=== PATIENT | female | born 1990 | race Caucasian/White ===

== ENCOUNTER 2020-01-31 14:14 | Emergency (ER) | payer BC, SELFPAY ==
[2020-01-31 14:31] VITALS: BP 117/75; PULSE 81; RESP 16; TEMP 36.6; O2SAT 99; BMI 33.6
[2020-01-31] MEDS: 0.9 % Sodium Chloride 1,000 ML 999 ML IVCONT (15:05)
[2020-01-31 15:15] LABS: Basophils Percent Auto 0.3 % (0-2); Eosinophils Absolute Auto 0.1 X10*3/uL (0.0-0.4); Eosinophils Percent Auto 1.9 % (0-4); Hematocrit 36.3 % (37-47); Hemoglobin 11.4 g/dl (12.0-16.0); Imm Gran Abs Auto 0.08 X10*3/uL (0.00-0.03); Imm Gran Pct Auto 1.3 % (0.0-0.4); Lymphocytes Absolute Auto 0.8 X10*3/uL (1.2-4.9); Lymphocytes Percent Auto 12.7 % (20-40); MANUAL DIFF FLAG NO; Mean Corpuscular HGB Conc 31.4 g/dl (31.0-35.0); Mean Corpuscular Hemoglobin 24.7 pg (27.0-33.0); Mean Corpuscular Volume 78.7 fL (80-98); Mean Platelet Volume 10.7 fL (9.4-12.3); Monocytes Absolute Auto 0.6 X10*3/uL (0.1-1.2); Monocytes Percent Auto 9.6 % (2-11); Neutrophils Absolute Auto 4.6 X10*3/uL (2.0-8.3); Neutrophils Percent Auto 74.2 % (45-73); Platelet Count 277 X10*3/uL (160-400); Red Blood Count 4.61 X10*6/uL (4.20-5.50); Red Cell Distribution Width 14.3 % (11.0-16.0); White Blood Count 6.2 X10*3/uL (4.8-10.8)
[2020-01-31 15:21] LABS: INTERNATIONAL NORM RATIO 1.1 (0.9-1.1)
[2020-01-31 15:23] LABS: Partial Thromboplastin Time 31.5 SEC (24.1-38.0)
[2020-01-31 15:26] LABS: Glucose Urine UA NEG (NEG); Leukocyte Esterase Urine 2+ (NEG); Nitrite Urine NEG (NEG); Urine Blood 3+ (NEG); Urine Ketones NEG (NEG); Urine Protein NEG (NEG-TRACE)
[2020-01-31 15:27] LABS: Appearance Urine HAZY; Color Urine YELLOW
[2020-01-31 15:28] LABS: UPreg QC Valid YES; Urine Pregnancy NEGATIVE (NEGATIVE)
[2020-01-31 15:35] LABS: Bacteria Urine 1+ /LPF; RBC Urine 50-75 /HPF (0); Squamous Epithelial Cell Urine 3+ /LPF; WBC Urine 30-49 /HPF (0-4)
[2020-01-31 15:40] VITALS: BP 108/58; PULSE 74; RESP 17; TEMP 36.6; O2SAT 100
[2020-01-31 15:53] LABS: Alanine Aminotransferase 27 U/L (0-31); Albumin Level 3.8 g/dL (3.5-5.0); Alkaline Phosphatase 67 U/L (39-117); Anion Gap 12 (12-20); Aspartate Amino Transferase 30 U/L (5-31); Bilirubin Direct 0.2 mg/dL (0.0-0.5); Bilirubin Total 0.5 mg/dL (0.0-1.0); Blood Urea Nitrogen 13 mg/dL (9-16); Calcium 8.3 mg/dL (8.4-10.2); Carbon Dioxide 23 mmol/L (22-29); Chloride 103 mmol/L (96-108); Creatinine Clr Calc Pharmacy 112.7; Estimated Glomerular Filt Rate > 60; Glucose Random 86 mg/dL (60-115); Lipase 29 U/L (8-78); Potassium 4.3 mmol/l (3.3-5.1); Sodium 134 mmol/L (135-145)
[2020-01-31 15:55] LABS: HCG Quantitative 27 mIU/mL
--- NOTE | 2020-01-31 16:24 | ED_ITS ---
HPI - Abdominal Pain General Chief Complaint: Abdominal Pain Stated Complaint: Abd pain Time Seen by Provider: 01/31/20 14:26 Source: patient Mode of arrival: ambulatory Limitations: no limitations History of Present Illness HPI narrative: patient presents to the ED for slight abdominal cramping and dysuria for the past 2 weeks. Patient also states yesterday she took a test and was positive. Patient denies any flank pain, fever, chills, nausea, vomiting, vaginal bleeding. Related Data Previous Rx's Medication Instructions Recorded nitrofurantoin monohyd/m-cryst 100 mg PO Q12H #14 cap 01/31/20 [Macrobid] Allergies Allergy/AdvReac Type Severity Reaction Status Date / Time lidocaine Allergy Swelling Verified 01/31/20 14:36 Review of Systems Review of Systems Yes all other systems are reviewed and are negative Eyes: Reports as per HPI and Reports no additional eye complaints Reports system reviewed and no additional complaints, except as documented, Reports as per HPI and Denies dysphagia Cardiovascular: Reports as per HPI and Reports no additional cardiovascular complaints Respiratory: Reports as per HPI and Reports no additional respiratory complaints Gastrointestinal: Denies abdominal pain, Denies belching, Denies melena, Denies bloating, Denies hematochezia, Denies tenesmus, Denies change in stool character, Denies coffee ground emesis, Denies constipation, Denies GI cramping, Denies dysphagia, Denies excessive flatus, Denies early satiety, Denies dyspepsia, Denies heartburn, Denies fecal incontinence, Denies diarrhea and Denies loose stools Genitourinary: Reports no additional female genitourinary complaints, Reports as per HPI, Reports dysuria, Reports pelvic pain, Denies prolapse symptoms, Reports urinary incontinence ( Increased), Denies urinary hesitancy, Denies urinary urgency, Denies vaginal discharge and Denies vaginal dryness Musculoskeletal: Reports no additional musculoskeletal complaints Reports system reviewed and no additional complaints, except as documented and Reports as per HPI Psychiatric: Reports no additional psychiatric complaints and Reports as per HPI Physical Exam Vital Signs: Vital Signs: Vital Signs Temp Pulse Resp BP Pulse Ox 01/31/20 15:40 98 F 74 17 108/58 L 100 01/31/20 14:31 97.8 F 81 16 117/75 99 Body Mass Index 33.6 Const: General: cooperative, healthy appearing, comfortable, no acute distress, well developed, alert and awake Orientation/consciousness: oriented to person, oriented to place, oriented to time and patient oriented x3 HENMT: Head: Yes normal to inspection Ears: hearing grossly normal bilaterally General nose exam: Normal external nose present Face and sinus: Yes normal facial exam Mouth: Normal oral and palatal mucosa present Eyes: General: appearance normal, both eyes and all related structures Neck: Neck: Yes normal visual inspection, Yes full ROM, Yes no lymphadenopathy, Yes no meningeal signs, No positive Brudzinski's sign and No positive Kernig's sign Chest: Chest palpation & inspection: normal inspection of the chest, normal palpation of entire chest wall and no localized rib tenderness Resp: Effort & Inspection: normal respiratory effort, able to speak in complete sentences, no grunting, not labored, no nasal flaring, no paradoxical thoraco-abdom movements, no pursed lip breathing, not tachypneic, no tracheal deviation and no tripod positioning Auscultation: clear to auscultation bilaterally, no crackles, no rales, no rhonchi and no wheezes Percussion: percussion normal Cardio: Jugular venous distension: no JVD Heart sounds: S1 normal heart sound present and S2 normal heart sound present GI: Inspection: Yes normal to inspection Palpation (GI): Soft to palpation, not firm, nontender, no guarding and not rigid Percussion: Yes normal to percussion Auscultation: normal bowel sounds : Other: pelvic exam negative for any vaginal bleeding. Cervical os is closed. Negative for cervical motion tenderness. Negative for any yellow /green discharge. General: No CVA tenderness and Yes no CVA tenderness Back/Spine/Pelvis: Back: no CVA tenderness, No CVA tenderness and No back tenderness Skin: General skin exam: no rashes or lesions noted Neuro: General: oriented to person, oriented to place, oriented to time, patient oriented x3, gait normal, no meningeal signs and CN's II-XI intact bilaterally Cranial nerves: Yes CN's II-XII intact bilaterally Course Course Course Narrative: patient will have labs drawn including base CT to see if she is . Patient presents not any distress. Patient given IV fluids. Reevaluation(s) Reevaluation #1: Patient beta hCG is only 27. abdomen is benign and nontender to palpation. Negative for CVA flanks. Ultrasound to rule out ectopic not ne cessary. Ectopic very unlikely at base CT at 27. Patient denies any vaginal bleeding. Time: 17:04 Reevaluation #2: Patient will be treated as UTI. Patient given information to follow-up with Dr. William Aiken for further evaluation. Time: 17:13 Reevaluation #3: patient was offered empiric treatment for STI, but patient states she rather wait for the results to see if she positive and then she will be called to [facility] for treatment. Patient informed results take about 4-5 days and patient still rather wait for the results. Patient does not believe she has STI. Time: 17:34 MDM - Abdominal Pain MDM Narrative Medical decision making narrative: . UTI Lab Data Result diagrams: 01/31/20 15:04 01/31/20 15:04 Labs: Lab Results 01/31/20 01/31/20 01/31/20 Range/Units 15:04 15:04 15:04 WBC 6.2 (4.8-10.8) X10*3/uL RBC 4.61 (4.20-5.50) X10*6/uL Hgb 11.4 L (12.0-16.0) g/dl Hct 36.3 L (37-47) % MCV 78.7 L (80-98) fL MCH 24.7 L (27.0-33.0) pg MCHC 31.4 (31.0-35.0) g/dl RDW 14.3 (11.0-16.0) % Plt Count 277 (160-400) X10*3/uL MPV 10.7 (9.4-12.3) fL Immature Gran % (Auto) 1.3 H (0.0-0.4) % Neut % (Auto) 74.2 H (45-73) % Lymph % (Auto) 12.7 L (20-40) % [place] % (Auto) 9.6 (2-11) % Eos % (Auto) 1.9 (0-4) % Baso % (Auto) 0.3 (0-2) % Lymph # (Auto) 0.8 L (1.2-4.9) X10*3/uL [place] # (Auto) 0.6 (0.1-1.2) X10*3/uL Eos # (Auto) 0.1 (0.0-0.4) X10*3/uL Baso # (Auto) 0.0 (0.0-0.2) X10*3/uL Abs Immat Gran (auto) 0.08 H (0.00-0.03) X10*3/uL Absolute Neuts (auto) 4.6 (2.0-8.3) X10*3/uL Absolute Nucleated RBC 0.000 (0.0-0.012) X10*3/uL Nucleated RBC % (auto) 0.0 (0.0-0.2) /100WBC PT 13.0 (10.8-13.0) SEC INR 1.1 (0.9-1.1) APTT 31.5 (24.1-38.0) SEC Sodium 134 L (135-145) mmol/L Potassium 4.3 (3.3-5.1) mmol/l Chloride 103 (96-108) mmol/L Carbon Dioxide 23 (22-29) mmol/L Anion Gap 12 (12-20) BUN 13 (9-16) mg/dL Creatinine 0.78 (0.5-1.4) mg/dL Estim Creat Clear Calc 112.7 Estimated GFR > 60 Random Glucose 86 (60-115) mg/dL Calcium 8.3 L (8.4-10.2) mg/dL Total Bilirubin 0.5 (0.0-1.0) mg/dL Direct Bilirubin 0.2 (0.0-0.5) mg/dL AST 30 (5-31) U/L ALT 27 (0-31) U/L Alkaline Phosphatase 67 (39-117) U/L Total Protein 9.0 H (6.5-8.0) g/dL Albumin 3.8 (3.5-5.0) g/dL Lipase 29 (8-78) U/L Beta HCG, Quant 27 mIU/mL Urine Color Urine Appearance Urine pH (5.0-8.0) Ur Specific [place] (1.005-1.025) Urine Protein (NEG-TRACE) MG/DL Urine Glucose (UA) (NEG) MG/DL Urine Ketones (NEG) MG/DL Urine Blood (NEG) Urine Nitrite (NEG) Ur Leukocyte Esterase (NEG) Urine RBC (0) /HPF Urine WBC (0-4) /HPF Ur Squamous Epith Cells /LPF Urine Bacteria /LPF Urine Test (NEGATIVE) 01/31/20 Range/Units 15:04 WBC (4.8-10.8) X10*3/uL RBC (4.20-5.50) X10*6/uL Hgb (12.0-16.0) g/dl Hct (37-47) % MCV (80-98) fL MCH (27.0-33.0) pg MCHC (31.0-35.0) g/dl RDW (11.0-16.0) % Plt Count (160-400) X10*3/uL MPV (9.4-12.3) fL Immature Gran % (Auto) (0.0-0.4) % Neut % (Auto) (45-73) % Lymph % (Auto) (20-40) % [place] % (Auto) (2-11) % Eos % (Auto) (0-4) % Baso % (Auto) (0-2) % Lymph # (Auto) (1.2-4.9) X10*3/uL [place] # (Auto) (0.1-1.2) X10*3/uL Eos # (Auto) (0.0-0.4) X10*3/uL Baso # (Auto) (0.0-0.2) X10*3/uL Abs Immat Gran (auto) (0.00-0.03) X10*3/uL Absolute Neuts (auto) (2.0-8.3) X10*3/uL Absolute Nucleated RBC (0.0-0.012) X10*3/uL Nucleated RBC % (auto) (0.0-0.2) /100WBC PT (10.8-13.0) SEC INR (0.9-1.1) APTT (24.1-38.0) SEC Sodium (135-145) mmol/L Potassium (3.3-5.1) mmol/l Chloride (96-108) mmol/L Carbon Dioxide (22-29) mmol/L Anion Gap (12-20) BUN (9-16) mg/dL Creatinine (0.5-1.4) mg/dL Estim Creat Clear Calc Estimated GFR Random Glucose (60-115) mg/dL Calcium (8.4-10.2) mg/dL Total Bilirubin (0.0-1.0) mg/dL Direct Bilirubin (0.0-0.5) mg/dL AST (5-31) U/L ALT (0-31) U/L Alkaline Phosphatase (39-117) U/L Total Protein (6.5-8.0) g/dL Albumin (3.5-5.0) g/dL Lipase (8-78) U/L Beta HCG, Quant mIU/mL Urine Color YELLOW Urine Appearance HAZY Urine pH 6.0 (5.0-8.0) Ur Specific [place] 1.010 (1.005-1.025) Urine Protein NEG (NEG-TRACE) MG/DL Urine Glucose (UA) NEG (NEG) MG/DL Urine Ketones NEG (NEG) MG/DL Urine Blood 3+ H (NEG) Urine Nitrite NEG (NEG) Ur Leukocyte Esterase 2+ H (NEG) Urine RBC 50-75 H (0) /HPF Urine WBC 30-49 H (0-4) /HPF Ur Squamous Epith Cells 3+ /LPF Urine Bacteria 1+ /LPF Urine Test NEGATIVE (NEGATIVE) Discharge Plan Discharge Clinical Impression: , UTI (urinary tract infection) during Patient Disposition: Home, Self-Care Instructions: (ED), Urinary Tract Infection in (ED) Additional Instructions: return to the ED immediately for any abdominal pain, vaginal bleeding, flank pain, fever, chills, nausea, vomiting, or any other concerning symptoms. Prescriptions: New nitrofurantoin monohyd/m-cryst [Macrobid] 100 mg capsule 100 mg PO Q12H Qty: 14 RF: 0 Referrals: Finesse Thomas MD [Physician] - 2 days ( . Beta HCG 27. Will need repeat beta hCG and an ultrasound) Stand Alone Forms: Work/School Release Print Language: [place] [facility] Past Medical History Medical History (Updated 01/31/20 @ 17:16 by OZ Galeano) No known health problems Social History Social History Smoked in Last 30 Days: No Use of substances other than those prescribed or required for medical reasons: No Advance Directives: No Advance Directives Information Provided: Yes
[2020-02-01 02:42] LABS: CT PCR NOT DETECTED (Not Detect.); NG PCR NOT DETECTED (Not Detect.)
[2020-02-01 12:59] LABS: BV Int Neg Control Negative (Negative); BV Int Pos Control Positive (Positive)
== END 2020-01-31 17:37 | disposition home or self-care (01) ==
PROVIDERS: Physician Assistant; Emergency Provider Emergency Medicine
DX: O23.41 Unspecified infection of urinary tract in pregnancy, first trimester (principal)
CPT/HCPCS: 36415; 80053; 80076; 81001; 81025; 83690; 84702; 85025; 85610; 85730; 86900; 86901; 87086; 87480; 87491; 87510; 87591; 87660; 96360; 99284

== ENCOUNTER 2020-02-02 14:33 | Emergency (ER) | payer BC, SELFPAY ==
[2020-02-02 14:46] VITALS: BP 126/67; PULSE 78; RESP 20; TEMP 37.2; O2SAT 98; BMI 35.4
--- NOTE | 2020-02-02 15:06 | US_ITS ---
EXAMINATION: US PELVIS CLINICAL INFORMATION: . Lower abdominal pain and cramping COMPARISON: None TECHNIQUE: Ultrasound of the pelvis is performed using both transabdominal and transvaginal transducers along with Doppler. Transvaginal imaging is performed due to inadequate visualization transabdominally. FINDINGS: Uterus: Uterus is normal in size, configuration and contour. The endometrial signature measures 1.5 cm, and is homogeneous. No gestational sac is identified. No uterine mass. Adnexa: Both ovaries are visualized. There is normal color flow to the adnexa. There is no ovarian torsion. There is no pelvic ascites or fluid collection. Right ovary measures 4.4 x 3.0 x 3.9 cm. There is a 3.0 x 2.7 x 2.6 cm simple cyst within the right ovary, compatible with a physiologic follicle. Left ovary measures 3.4 x 2.1 x 1.9 cm. US/US OB <= 14 weeks fetus IMPRESSION: No intrauterine is identified. No evidence of ectopic on the images submitted for review. Please correlate with serial hCG levels.
--- NOTE | 2020-02-02 15:06 | US_ITS ---
EXAMINATION: US PELVIS CLINICAL INFORMATION: . Lower abdominal pain and cramping COMPARISON: None TECHNIQUE: Ultrasound of the pelvis is performed using both transabdominal and transvaginal transducers along with Doppler. Transvaginal imaging is performed due to inadequate visualization transabdominally. FINDINGS: Uterus: Uterus is normal in size, configuration and contour. The endometrial signature measures 1.5 cm, and is homogeneous. No gestational sac is identified. No uterine mass. Adnexa: Both ovaries are visualized. There is normal color flow to the adnexa. There is no ovarian torsion. There is no pelvic ascites or fluid collection. Right ovary measures 4.4 x 3.0 x 3.9 cm. There is a 3.0 x 2.7 x 2.6 cm simple cyst within the right ovary, compatible with a physiologic follicle. Left ovary measures 3.4 x 2.1 x 1.9 cm. US/US transvaginal IMPRESSION: No intrauterine is identified. No evidence of ectopic on the images submitted for review. Please correlate with serial hCG levels.
--- NOTE | 2020-02-02 15:19 | ED.PREGNANCY ---
HPI - General Chief complaint: Vaginal Bleeding Stated complaint: VAGINAL BLEEDING Time Seen by Provider: 02/02/20 14:54 Source: patient Mode of arrival: ambulatory Limitations: no limitations History of Present Illness HPI Narrative: 29yoF c No Sig PMHx who is currently LMP 12/24/2019 seen here on 01/31/2020 and had a + urine and blood test. She reports no imaging obtained who has had one prior where she had an presenting to the ED c c/o suprapubic abdominal cramping and 1 episode of bright red blood when she wiped after urinating in the toilet approximately 45 minutes prior to arrival. Denies any other symptoms complaints or concerns at this time. Related Data Previous Rx's Medication Instructions Recorded nitrofurantoin monohyd/m-cryst 100 mg PO Q12H #14 cap 01/31/20 [Macrobid] metronidazole 500 mg PO BID 7 Days #14 tab 02/02/20 Allergies Allergy/AdvReac Type Severity Reaction Status Date / Time lidocaine Allergy Swelling Verified 01/31/20 14:36 Review of Systems Review of Systems: Constitutional : No Fever, No Chills, No Fatigue Cardiovascular : No Chest Pain, No SOB Respiratory : No Cough, No Sputum, No Wheezing, No Dyspnea Gastrointestinal : + abdominal Pain, No Nausea, No Vomiting, No Diarrhea Genitourinary : + Vaginal irregular bleeding, No Dysuria, No Urinary Frequency, No vaginal discharged or malodor Musculoskeletal : No joint pain, No Myalgias Skin : No Skin Lesions, No rash Neuro : No Weakness, No Paresthesias, No Dizziness, No Headache Yes all other systems are reviewed and are negative [facility] Past Medical History Attestation statement: The following information was validated with the patient. Medical History No known health problems Social History Social History Smoked in Last 30 Days: No Use of substances other than those prescribed or required for medical reasons: No Advance Directives: No Advance Directives Information Provided: No Physical Exam Vital Signs: Vital Signs: Vital Signs Temp Pulse Resp BP Pulse Ox 02/02/20 14:46 98.9 F 78 20 126/67 98 Body Mass Index 35.4 vital signs have been reviewed as normal and appeared to be correct. Blood pressure normal. Heart rate normal. Respiration rate normal. Temperature normal. Oxygen saturation normal. Appearance: Alert. Oriented X3. No acute distress. Head: Normal external exam. Normocephalic. Atraumatic. Eyes: PERRLA. EOMI. Conjunctiva and sclera normal. Eyelids normal. ENT: EAC normal. TM's Normal. Pharynx normal. Uvula midline. Moist mucous membranes. Neck: Normal inspection. Neck supple. FROM. CVS: Normal heart rate and rhythm. Heart sound normal. No murmurs noted. Pulses normal throughout. Respiratory: No respiratory distress. Painless inspiration. Breath sounds normal. No wheezes/rales/rhonchi noted. Chest nontender. No accessory muscle usage noted or decreased air movement noted. Abdomen: Soft and TTP of suprapubic abdomen. Bowel sounds normal in all 4 quadrants. No distention noted. No organomegaly noted. No visible injury noted. : Mary Beth, PCT coffee machine technician during this exam. Normal external exam no abrasions, lesions or rashes noted. On speculum exam patient has mild bright red blood no clots noted. Cervix is closed. Mild thick white non odorous cottage cheese like discharge noted. Bimanual exam within normal limits. Back: No CVA tenderness. Full range of motion noted. Skin: Skin warm and dry. Normal skin color. Normal skin turgor. No rashes/lesions/lacerations noted. Extremities: No lower extremity edema. Extremities exhibit normal range of motion. Extremities nontender. Neuro: Oriented X 3. No motor deficit. No sensory deficit. Reflexes normal. Course Course Course Narrative: 15PM - 29yoF whom is [id number] presenting to the ED c c/o suprapubic abdominal cramping with associated bright red vaginal bleeding that started 45 minutes prior to arrival. Denies any other symptoms complaints or concerns at this time - Concern for miscarriage versus ectopic - Plan: Labs including serum quant, first-trimester ultrasound and UA then re-evaluate. Reevaluation(s) Reevaluation #1: Patient's serum quant is 5 today which is decreased when compared to 2 days ago which was 26. On ultrasound there was no intrauterine identified and no evidence of ectopic therefore consulted with Dr. William ADHIKARI who recommended giving her an outpatient slip for repeat serum quant in 2 days and having her follow-up within 7 days in his office. He also recommended given p.o. Flagyl as he reported it is okay to give even if she was . Patient informed about this and instructed to follow-up in 2 days for repeat serum quant outpatient lab slip given to patient and to follow-up with Dr. Thomas. patient understands agrees the plan. Time: 17:25 MDM - OB/Uterine Contractions Medical Records Attestation: I reviewed the patient's medical records. Lab Data Attestation: I reviewed the patient's lab results. Result diagrams: 02/02/20 16:04 02/02/20 16:06 Labs: Lab Results 02/02/20 02/02/20 02/02/20 Range/Units 16:04 16:04 16:05 WBC 5.7 (4.8-10.8) X10*3/uL RBC 4.72 (4.20-5.50) X10*6/uL Hgb 11.8 L (12.0-16.0) g/dl Hct 37.5 (37-47) % MCV 79.4 L (80-98) fL MCH 25.0 L (27.0-33.0) pg MCHC 31.5 (31.0-35.0) g/dl RDW 14.2 (11.0-16.0) % Plt Count 286 (160-400) X10*3/uL MPV 10.7 (9.4-12.3) fL Immature Gran % (Auto) 1.4 H (0.0-0.4) % Neut % (Auto) 73.8 H (45-73) % Lymph % (Auto) 14.0 L (20-40) % [place] % (Auto) 8.4 (2-11) % Eos % (Auto) 2.1 (0-4) % Baso % (Auto) 0.3 (0-2) % Lymph # (Auto) 0.8 L (1.2-4.9) X10*3/uL [place] # (Auto) 0.5 (0.1-1.2) X10*3/uL Eos # (Auto) 0.1 (0.0-0.4) X10*3/uL Baso # (Auto) 0.0 (0.0-0.2) X10*3/uL Abs Immat Gran (auto) 0.08 H (0.00-0.03) X10*3/uL Absolute Neuts (auto) 4.2 (2.0-8.3) X10*3/uL Absolute Nucleated RBC 0.000 (0.0-0.012) X10*3/uL Nucleated RBC % (auto) 0.0 (0.0-0.2) /100WBC PT 12.1 (10.8-13.0) SEC INR 1.0 (0.9-1.1) Sodium (135-145) mmol/L Potassium (3.3-5.1) mmol/l Chloride (96-108) mmol/L Carbon Dioxide (22-29) mmol/L Anion Gap (12-20) BUN (9-16) mg/dL Creatinine (0.5-1.4) mg/dL Estim Creat Clear Calc Estimated GFR Random Glucose (60-115) mg/dL Calcium (8.4-10.2) mg/dL Magnesium (1.6-2.6) mg/dL Total Bilirubin (0.0-1.0) mg/dL Direct Bilirubin (0.0-0.5) mg/dL AST (5-31) U/L ALT (0-31) U/L Alkaline Phosphatase (39-117) U/L Total Protein (6.5-8.0) g/dL Albumin (3.5-5.0) g/dL Beta HCG, Quant mIU/mL Blood Type O Positive 02/02/20 02/02/20 Range/Units 16:05 16:06 WBC (4.8-10.8) X10*3/uL RBC (4.20-5.50) X10*6/uL Hgb (12.0-16.0) g/dl Hct (37-47) % MCV (80-98) fL MCH (27.0-33.0) pg MCHC (31.0-35.0) g/dl RDW (11.0-16.0) % Plt Count (160-400) X10*3/uL MPV (9.4-12.3) fL Immature Gran % (Auto) (0.0-0.4) % Neut % (Auto) (45-73) % Lymph % (Auto) (20-40) % [place] % (Auto) (2-11) % Eos % (Auto) (0-4) % Baso % (Auto) (0-2) % Lymph # (Auto) (1.2-4.9) X10*3/uL [place] # (Auto) (0.1-1.2) X10*3/uL Eos # (Auto) (0.0-0.4) X10*3/uL Baso # (Auto) (0.0-0.2) X10*3/uL Abs Immat Gran (auto) (0.00-0.03) X10*3/uL Absolute Neuts (auto) (2.0-8.3) X10*3/uL Absolute Nucleated RBC (0.0-0.012) X10*3/uL Nucleated RBC % (auto) (0.0-0.2) /100WBC PT (10.8-13.0) SEC INR (0.9-1.1) Sodium 135 (135-145) mmol/L Potassium 4.2 (3.3-5.1) mmol/l Chloride 102 (96-108) mmol/L Carbon Dioxide 23 (22-29) mmol/L Anion Gap 14 (12-20) BUN 14 (9-16) mg/dL Creatinine 0.84 (0.5-1.4) mg/dL Estim Creat Clear Calc 107.6 Estimated GFR > 60 Random Glucose 80 (60-115) mg/dL Calcium 9.1 (8.4-10.2) mg/dL Magnesium 2.0 (1.6-2.6) mg/dL Total Bilirubin 0.4 (0.0-1.0) mg/dL Direct Bilirubin 0.2 (0.0-0.5) mg/dL AST 30 (5-31) U/L ALT 30 (0-31) U/L Alkaline Phosphatase 73 (39-117) U/L Total Protein 9.7 H (6.5-8.0) g/dL Albumin 4.3 (3.5-5.0) g/dL Beta HCG, Quant 5 mIU/mL Blood Type Imaging Data ob US: Attestation: I personally reviewed and interpreted this imaging study as follows: Radiologist's impression: FINDINGS: Uterus: Uterus is normal in size, configuration and contour. The endometrial signature measures 1.5 cm, and is homogeneous. No gestational sac is identified. No uterine mass. Adnexa: Both ovaries are visualized. There is normal color flow to the adnexa. There is no ovarian torsion. There is no pelvic ascites or fluid collection. Right ovary measures 4.4 x 3.0 x 3.9 cm. There is a 3.0 x 2.7 x 2.6 cm simple cyst within the right ovary, compatible with a physiologic follicle. Left ovary measures 3.4 x 2.1 x 1.9 cm. US/US OB <= 14 weeks fetus IMPRESSION: No intrauterine is identified. No evidence of ectopic on the images submitted for review. Please correlate with serial hCG levels. Discharge Plan Discharge Clinical Impression: Incomplete , Bacterial vaginosis Patient Disposition: Home, Self-Care Instructions: Miscarriage (ED), Threatened Miscarriage (ED), Bacterial Vaginosis (ED) Additional Instructions: I gave you an outpatient lab slip to have a repeat serum quant to assess her blood for . Then you should follow-up with Dr. Thomas within the next week. Return if you have any worsening abdominal pain or worsening vaginal bleeding. And follow-up with Dr. William ADHIKARI as scheduled. Prescriptions: New metronidazole 500 mg tablet 500 mg PO BID 7 Days Qty: 14 RF: 0 No Action nitrofurantoin monohyd/m-cryst [Macrobid] 100 mg capsule 100 mg PO Q12H Qty: 14 RF: 0 Referrals: Finesse Thomas MD [Physician] - 02/10/20 Stand Alone Forms: Work/School Release Print Language: Spanish
[2020-02-02] MEDS: Acetaminophen 325 MG TABLET 650 MG PO (15:48)
[2020-02-02 16:12] LABS: MANUAL DIFF FLAG NO
[2020-02-02 16:14] LABS: Basophils Percent Auto 0.3 % (0-2); Eosinophils Absolute Auto 0.1 X10*3/uL (0.0-0.4); Eosinophils Percent Auto 2.1 % (0-4); Hematocrit 37.5 % (37-47); Hemoglobin 11.8 g/dl (12.0-16.0); Imm Gran Abs Auto 0.08 X10*3/uL (0.00-0.03); Imm Gran Pct Auto 1.4 % (0.0-0.4); Lymphocytes Absolute Auto 0.8 X10*3/uL (1.2-4.9); Mean Corpuscular HGB Conc 31.5 g/dl (31.0-35.0); Mean Corpuscular Volume 79.4 fL (80-98); Mean Platelet Volume 10.7 fL (9.4-12.3); Monocytes Absolute Auto 0.5 X10*3/uL (0.1-1.2); Monocytes Percent Auto 8.4 % (2-11); Neutrophils Absolute Auto 4.2 X10*3/uL (2.0-8.3); Neutrophils Percent Auto 73.8 % (45-73); Platelet Count 286 X10*3/uL (160-400); Red Blood Count 4.72 X10*6/uL (4.20-5.50); Red Cell Distribution Width 14.2 % (11.0-16.0); White Blood Count 5.7 X10*3/uL (4.8-10.8)
[2020-02-02 16:22] LABS: Prothrombin Time 12.1 SEC (10.8-13.0)
[2020-02-02 16:42] LABS: Anion Gap 14 (12-20); Blood Urea Nitrogen 14 mg/dL (9-16); Calcium 9.1 mg/dL (8.4-10.2); Carbon Dioxide 23 mmol/L (22-29); Chloride 102 mmol/L (96-108); Creatinine Clr Calc Pharmacy 107.6; Estimated Glomerular Filt Rate > 60; Glucose Random 80 mg/dL (60-115); Potassium 4.2 mmol/l (3.3-5.1); Sodium 135 mmol/L (135-145)
[2020-02-02 16:44] LABS: Alanine Aminotransferase 30 U/L (0-31); Albumin Level 4.3 g/dL (3.5-5.0); Alkaline Phosphatase 73 U/L (39-117); Aspartate Amino Transferase 30 U/L (5-31); Bilirubin Direct 0.2 mg/dL (0.0-0.5); Bilirubin Total 0.4 mg/dL (0.0-1.0); Total Protein 9.7 g/dL (6.5-8.0)
[2020-02-02 16:53] LABS: HCG Quantitative 5 mIU/mL
== END 2020-02-02 18:32 | disposition home or self-care (01) ==
PROVIDERS: Physician Assistant Medical; Emergency Provider Emergency Medicine
DX: O03.4 Incomplete spontaneous abortion without complication (principal)
CPT/HCPCS: 36415; 76801; 76830; 80048; 80076; 83735; 84702; 85025; 85610; 86900; 86901; 96360; 99284

== ENCOUNTER 2020-02-04 14:14 | Outpatient (REF) | payer BC, SELFPAY ==
[2020-02-04 15:19] LABS: HCG Quantitative < 2 mIU/mL
== END 2020-02-04 14:15 | disposition home or self-care (01) ==
LOC: HO.LAB 14:14
PROVIDERS: Visit Provider Physician Assistant Medical
DX: O03.4 Incomplete spontaneous abortion without complication (principal); N93.9 Abnormal uterine and vaginal bleeding, unspecified
CPT/HCPCS: 84702

== ENCOUNTER → 2020-02-11 07:58 | Outpatient (BNVA) | payer BC, SELFPAY | PROVIDERS: Visit Provider Advanced Practice Midwife | DX: Z76.89 Persons encountering health services in other specified circumstances (principal) ==

== ENCOUNTER 2020-05-29 06:48 | Emergency (ER) | payer BC, SELFPAY ==
--- NOTE | ~2020-05-29 | XR_ITS ---
EXAMINATION: XR HAND, RIGHT CLINICAL INFORMATION: Pain after trauma COMPARISON: None TECHNIQUE: PA, lateral, and oblique views of the right hand. FINDINGS: Alignment is normal. Joint spaces are maintained. No arthritic deformity. No fracture or subluxation. No radiopaque foreign body or overt soft tissue swelling. XR/XR hand RT min 3V IMPRESSION: No acute osseous injury in the right hand or wrist.
[2020-05-29 06:51] VITALS: BP 112/73; PULSE 90; RESP 18; TEMP 36.9; O2SAT 99; BMI 28.3
--- NOTE | 2020-05-29 08:31 | ED.EXTPRO ---
HPI - Extremity Problem General Chief complaint: Extremity Injury, Upper Stated complaint: Hand pain Time Seen by Provider: 05/29/20 08:18 Source: patient Mode of arrival: ambulatory Limitations: no limitations History of Present Illness HPI Narrative: 30-year-old female presenting to the ED with complaints of right hand pain little finger unable to fully extended after possibly a pulling or lifting injury while at work 5 days ago reports that she was able to extend the finger fully up until yesterday and now is in a flexion position. Denies any fevers, numbness/tingling, erythema, lacerations or rashes or any other symptoms complaints or concerns. MD Complaint: extremity pain Onset (ago): day(s) (Five days worse yesterday) Pain Consistency: constant Location: right Severity scale (1-10): >10 Quality: constant Radiation: none Relieving factors: nothing Exacerbating factors: other (Extension of the finger) Associated symptoms: denies other symptoms Related Data Previous Rx's Medication Instructions Recorded nitrofurantoin monohyd/m-cryst 100 mg PO Q12H #14 cap 01/31/20 [Macrobid] metronidazole 500 mg PO BID 7 Days #14 tab 02/02/20 acetaminophen [Tylenol Extra 1,000 mg PO QID PRN #14 tab 05/29/20 Strength] ibuprofen 800 mg PO Q8H PRN #14 tab 05/29/20 oxycodone 5 mg PO BID PRN #10 tab 05/29/20 Allergies Allergy/AdvReac Type Severity Reaction Status Date / Time lidocaine Allergy Swelling Verified 02/11/20 08:13 Review of Systems Review of Systems: Musculoskeletal : + joint pain, No neck stiffness, No back pain/injury Skin : No lacerations Yes all other systems are reviewed and are negative [facility] Past Medical History Attestation statement: The following information was validated with the patient. Medical History No known health problems Surgical History Hx of bilateral breast reduction surgery Family History Family History Maternal Grandmother Breast cancer Father Prostate cancer Diabetes Paternal Grandfather Prostate cancer Mother Diabetes HTN (hypertension) Social History Social History Alcohol intake: never Smoking Status: Never smoker Advance Directives: No Advance Directives Information Provided: No Sexual orientation: Straight/Heterosexual Gender identity: female Physical Exam Vital Signs: Vital Signs: Last Vital Signs Temp 98.5 F 05/29/20 06:51 Pulse 90 05/29/20 06:51 Resp 18 05/29/20 06:51 BP 112/73 05/29/20 06:51 Pulse Ox 99 05/29/20 06:51 Body Mass Index 28.3 vital signs have been reviewed as normal and appeared to be correct. Blood pressure normal. Heart rate normal. Respiration rate normal. Temperature normal. Oxygen saturation normal. Appearance: Alert. Oriented X3. No acute distress. Head: Normal external exam. Normocephalic. Atraumatic. Eyes: PERRLA. EOMI. Conjunctiva and sclera normal. Eyelids normal. ENT: EAC normal. TM's Normal. Pharynx normal. Uvula midline. Moist mucous membranes. Neck: Normal inspection. Neck supple. FROM. No adenopathy. No meningeal signs. No neck mass noted. CVS: Normal heart rate and rhythm. Respiratory: No respiratory distress. Painless inspiration. Back: Full range of motion noted. Skin: Skin warm and dry. Normal skin color. Normal skin turgor. No rashes/lesions/lacerations noted. Extremities: To right hand little finger patient has it and a flexion unable to fully extend the finger at the PIP/MCP joint. No signs of infection, no erythema, no fluctuance, no streaking, no induration noted. Otherwise all other Extremities exhibit normal range of motion and nontender. Neuro: Oriented X 3. No motor deficit. No sensory deficit. Reflexes normal. Course Course Course Narrative: 30-year-old female presenting to the ED after a pulling/lift injury while at work 5 days ago yesterday she started to be unable to extend her right hand 5th digit at the MCP/PIP joint most likely consistent with tendon injury therefore consulted with orthopedic [facility] and she recommended placing the patient in extension splint and to follow up with them in a week. Will DC home with symptomatic treatment along with instructions to return if any new or worsening symptoms to follow up with orthopedic surgeons Dr. aClloway. Patient understands agrees with this plan MDM - Extremity (Nontraumatic) Medical Records Attestation: I reviewed the patient's medical records. Imaging Data Right hand: Attestation: I personally reviewed and interpreted this imaging study as follows: Radiologist's impression: FINDINGS: Alignment is normal. Joint spaces are maintained. No arthritic deformity. No fracture or subluxation. No radiopaque foreign body or overt soft tissue swelling. XR/XR hand RT min 3V IMPRESSION: No acute osseous injury in the right hand or wrist. Discharge Plan Discharge Clinical Impression: Injury of tendon of finger Patient Disposition: Home, Self-Care Instructions: Finger Sprain (ED), Tendon Rupture (ED), Splint Care (ED) Prescriptions: New ibuprofen 800 mg tablet 800 mg PO Q8H PRN (Reason: pain) Qty: 14 RF: 0 acetaminophen [Tylenol Extra Strength] 500 mg tablet 1,000 mg PO QID PRN (Reason: fever or pain) Qty: 14 RF: 0 oxycodone 5 mg tablet 5 mg PO BID PRN (Reason: pain) Qty: 10 RF: 0 No Action nitrofurantoin monohyd/m-cryst [Macrobid] 100 mg capsule 100 mg PO Q12H Qty: 14 RF: 0 metronidazole 500 mg tablet 500 mg PO BID 7 Days Qty: 14 RF: 0 Referrals: Florence Calloway MD [Physician] - 1 week (Call tomorrow to make a follow-up appointment within 1 week) Stand Alone Forms: Work/School Release Print Language: [place] Citizen
[2020-05-29] MEDS: oxyCODONE HCl Immed Release 5 MG TABLET PO (08:52)
== END 2020-05-29 09:01 | disposition home or self-care (01) ==
PROVIDERS: Emergency Provider Emergency Medicine Emergency Medical Services
DX: S66.316A Strain of extensor muscle, fascia and tendon of right little finger at wrist and hand level, initial encounter (principal); X50.1XXA Overexertion from prolonged static or awkward postures, initial encounter; Y93.89 Activity, other specified; Y92.512 Supermarket, store or market as the place of occurrence of the external cause; Y99.0 Civilian activity done for income or pay
CPT/HCPCS: 29130; 73130; 99283

== ENCOUNTER 2020-06-03 08:12 | Emergency (ER) | payer BC, SELFPAY ==
[2020-06-03 08:17] VITALS: BP 120/76; PULSE 97; RESP 16; TEMP 36.9; O2SAT 98; BMI 28.3
--- NOTE | 2020-06-03 08:19 | ED_ITS ---
HPI - URI/Sore Throat General Chief Complaint: Upper Respiratory Symptoms Stated Complaint: body ache Time Seen by Provider: 06/03/20 08:18 Source: patient Mode of arrival: ambulatory Limitations: no limitations History of Present Illness MD elicited complaint: other (body aches, fatigue) Onset (ago): week(s) (1) Consistency: constant Severity: moderate Description of mucous: clear Able to tolerate fluids by mouth: Yes Exacerbating factors: nothing Relieving factors: nothing Associated symptoms: chills and myalgias Treatments prior to arrival: none Related Data Previous Rx's Medication Instructions Recorded nitrofurantoin monohyd/m-cryst 100 mg PO Q12H #14 cap 01/31/20 [Macrobid] metronidazole 500 mg PO BID 7 Days #14 tab 02/02/20 acetaminophen [Tylenol Extra 1,000 mg PO QID PRN #14 tab 05/29/20 Strength] ibuprofen 800 mg PO Q8H PRN #14 tab 05/29/20 oxycodone 5 mg PO BID PRN #10 tab 05/29/20 Allergies Allergy/AdvReac Type Severity Reaction Status Date / Time lidocaine Allergy Swelling Verified 02/11/20 08:13 Review of Systems Review of Systems: Constitutional : no Fever, positive Chills, positive fatigue, positive Malaise ENT/Mouth : no sore throat, no runny nose Eyes: No Discharge Cardiovascular : No Chest Pain, No SOB Respiratory : No Cough, No Sputum Gastrointestinal : No Nausea, No Vomiting, No Diarrhea Genitourinary : No Dysuria, No Urinary Frequency Musculoskeletal : positive Myalgia Skin : No rash Neuro : No Headache PMFSH Past Medical History Attestation statement: The following information was validated with the patient. Medical History No known health problems Surgical History Hx of bilateral breast reduction surgery Family History Family History Maternal Grandmother Breast cancer Father Prostate cancer Diabetes Paternal Grandfather Prostate cancer Mother Diabetes HTN (hypertension) Social History Social History Alcohol intake: never Smoking Status: Never smoker Sexual orientation: Straight/Heterosexual Gender identity: female Physical Exam Vital Signs: Vital Signs: Last Vital Signs Temp 98.4 F 06/03/20 08:17 Pulse 97 06/03/20 08:17 Resp 16 06/03/20 08:17 BP 120/76 06/03/20 08:17 Pulse Ox 98 06/03/20 08:17 Body Mass Index 28.3 Appearance: Alert. Oriented X3. No acute distress. Eyes: Pupils equal, round and reactive to light. ENT: Pharynx normal. Neck: Normal inspection. Neck supple. CVS: Normal heart rate and rhythm. Pulses normal. Respiratory: No respiratory distress. Breath sounds normal. Abdomen: Soft and nontender. Skin: Skin warm and dry. Normal skin color. Normal skin turgor. Extremities: No lower extremity edema. No calf ttp Neuro: Oriented X 3. No motor deficit. No sensory deficit. Course Course Course Narrative: patient made aware of test result left message stating it was negative on the cell phone she provided MDM - URI/Sore Throat MDM Narrative Medical decision making narrative: 30 yo female otherwise healthy clear lungs, no hypoxia comes in with viral syndrome will test for COVID - given precautions to return Lab Data Labs: Lab Results 06/03/20 Range/Units 08:29 Coronavirus (PCR) NEGATIVE (Negative) Influenza Type A (PCR) NEGATIVE (Negative) Influenza Type B (PCR) NEGATIVE (Negative) RSV RNA Qual (PCR) NEGATIVE (Negative) Discharge Plan Discharge Clinical Impression: Viral infection Patient Disposition: Home, Self-Care Instructions: Viral Syndrome (ED), COVID-19 (Coronavirus Disease 2019) (ED) Additional Instructions: return to ED for any worsening symptoms or concerns if you are so short of breath you cannot walk to your bathroom please return to the ED Prescriptions: No Action nitrofurantoin monohyd/m-cryst [Macrobid] 100 mg capsule 100 mg PO Q12H Qty: 14 RF: 0 metronidazole 500 mg tablet 500 mg PO BID 7 Days Qty: 14 RF: 0 ibuprofen 800 mg tablet 800 mg PO Q8H PRN (Reason: pain) Qty: 14 RF: 0 acetaminophen [Tylenol Extra Strength] 500 mg tablet 1,000 mg PO QID PRN (Reason: fever or pain) Qty: 14 RF: 0 oxycodone 5 mg tablet 5 mg PO BID PRN (Reason: pain) Qty: 10 RF: 0 Stand Alone Forms: Work/School Release Interventions: ED Discharge Assessment Last Done: 06/03/20 08:53 Discharge Date/Time: 06/03/20 08:55 Print Language: [place] Islander
[2020-06-03 09:24] LABS: Influenza A PCR NEGATIVE (Negative); Influenza B PCR NEGATIVE (Negative); Resp Syncy Virus RNA Qual PCR NEGATIVE (Negative); SARS COV2 PCR INHOUSE NEGATIVE (Negative)
== END 2020-06-03 08:55 | disposition home or self-care (01) ==
PROVIDERS: Emergency Provider Emergency Medicine
DX: B34.9 Viral infection, unspecified (principal); M79.10 Myalgia, unspecified site; Z20.822 Contact with and (suspected) exposure to COVID-19; Z79.899 Other long term (current) drug therapy
CPT/HCPCS: 0241U; 36415; 99283

== ENCOUNTER 2020-06-06 13:17 | Emergency (ER) | payer BC, SELFPAY ==
[2020-06-06 13:25] VITALS: BP 106/64; PULSE 79; RESP 16; TEMP 36.8; O2SAT 98; BMI 28.3
--- NOTE | 2020-06-06 13:50 | ED.BACK ---
HPI - Back Pain/Injury General Chief Complaint: Back Pain/Injury Stated Complaint: Pain upper back & finger Time Seen by Provider: 06/06/20 13:50 Source: patient Mode of arrival: ambulatory Limitations: no limitations History of Present Illness HPI Narrative: Reports feels sore and stiff over the cervical paraspinous muscle region onset after doing strenuous activity at work lifting. Initially thought it may be COVID related as she has some upper respiratory symptoms however those have resolved and still has the soreness. States she is pretty active at work and likely this is related. She otherwise denies any headache, neck pain, fever, low back pain. No GI symptoms. No chest pain or shortness of breath. No changes in bowel or bladder elimination. MD elicited complaint: back pain Onset (ago): day(s) Timing: intermittent Severity: mild (Mild now but in the morning feels very sore) Quality: aching Location: thoracic spine Radiation: none Exacerbating factors: none Relieving factors: none Associated symptoms: denies other symptoms Work related injury: Yes (Likely from lifting boxes she says) Related Data Previous Rx's Medication Instructions Recorded nitrofurantoin monohyd/m-cryst 100 mg PO Q12H #14 cap 01/31/20 [Macrobid] metronidazole 500 mg PO BID 7 Days #14 tab 02/02/20 acetaminophen [Tylenol Extra 1,000 mg PO QID PRN #14 tab 05/29/20 Strength] ibuprofen 800 mg PO Q8H PRN #14 tab 05/29/20 oxycodone 5 mg PO BID PRN #10 tab 05/29/20 naproxen 500 mg PO BID PRN #14 tab 06/06/20 cyclobenzaprine 5 mg tablet 5 mg PO BEDTIME PRN 30 Days #30 tab 06/11/20 Allergies Allergy/AdvReac Type Severity Reaction Status Date / Time lidocaine Allergy Swelling Verified 06/09/20 11:10 Review of Systems Review of Systems: Constitutional: No Weight loss, No Fever, No Chills, No Night Sweats, No Fatigue, No Malaise ENT/Mouth: No Hearing loss, No Ear Pain, No Nasal Congestion, No Sinus Pain, No Hoarseness, No sore throat, No Rhinorrhea, No Swallowing Difficulty Eyes: No Eye Pain, No Swelling, No Redness, No Foreign Body, No Discharge, No Vision Changes Cardiovascular: No Chest Pain, No SOB, No Dyspnea on Exertion, No Orthopnea, No Edema, No Palpitations Respiratory: No Cough, No Sputum, No Wheezing, No Smoke Exposure, No Dyspnea Gastrointestinal: No Nausea, No Vomiting, No Diarrhea, No Constipation, No abdominal Pain, No Hematochezia, No Melena Genitourinary: No Dysuria, No Urinary Frequency, No Hematuria, No Urinary Incontinence, No Urgency, No Flank Pain, No Urinary Flow Changes, No Hesitancy Musculoskeletal: No joint pain, No Myalgias, No Joint Swelling, as noted per HPI Skin: No Skin Lesions, No rash Neuro: No Weakness, No Numbness, No Paresthesias, No Loss of Consciousness, No Dizziness, No Headache Psych: No Social Issues Heme/Lymph: No Bruising, No Bleeding,No Lymphadenopathy Endocrine: No Polyuria, No Polydipsia, No Temperature Intolerance Yes all other systems are reviewed and are negative PMFSH Past Medical History Medical History No known health problems Surgical History Hx of bilateral breast reduction surgery Family History Family History Maternal Grandmother Breast cancer Father Prostate cancer Diabetes Paternal Grandfather Prostate cancer Mother Diabetes HTN (hypertension) Social History Social History Alcohol intake: never Smoking Status: Never smoker Sexual orientation: Straight/Heterosexual Gender identity: female Physical Exam Vital Signs: Vital Signs: Last Vital Signs Temp 98.2 F 06/06/20 13:25 Pulse 79 06/06/20 13:25 Resp 16 06/06/20 13:25 BP 106/64 06/06/20 13:25 Pulse Ox 98 06/06/20 13:25 Body Mass Index 28.3 Reviewed Const: General: cooperative and healthy appearing; No acute distress or intoxicated appearing Nutritional Appearance: average body habitus Orientation/consciousness: patient oriented x3 HENMT: Head: Yes normal to inspection Ears: hearing grossly normal bilaterally Eyes: General: appearance normal, both eyes and all related structures Visual Tolentino: normal visual tolentino by confrontation Neck: Neck: Yes normal visual inspection, No positive Brudzinski's sign, No positive Kernig's sign and No tender Thyroid: Thyroid normal Chest: Chest palpation & inspection: normal inspection of the chest Resp: Effort & Inspection: normal respiratory effort Auscultation: clear to auscultation bilaterally Cardio: Jugular venous distension: no JVD Rhythm: regular rhythm Heart sounds: S1 normal heart sound present and S2 normal heart sound present GI: Inspection: Yes normal to inspection Percussion: Yes normal to percussion Auscultation: normal bowel sounds : General: Yes no CVA tenderness Back/Spine/Pelvis: Other: No rash Back: no CVA tenderness Cervical Spine: cervical ROM normal and other (Mild tender palpation over the lower paraspinous muscle group ) Thoracic/Lumbar Spine: other (And over the upper thoracic scapular region. Pain reproducible palpation. ) Skin: General skin exam: no rashes or lesions noted Neuro: General: patient oriented x3 Extrem: General: Yes normal to inspection MDM - Back Pain/Injury Differential Diagnosis Differential diagnosis: Likely strain of lumbar region and thoracic back pain (Cervical strain ); Unlikely lumbar radiculopathy, sciatica, renal colic, pyelonephritis, AAA and discitis Medical Records Attestation: I reviewed the patient's medical records. Lab Data Attestation: I reviewed the patient's lab results. Discharge Plan Discharge Clinical Impression: Thoracic back pain Patient Disposition: Home, Self-Care Instructions: Thoracic Back Strain (ED) Additional Instructions: Gentle stretching Taking medication as prescribed Home stretching techniques/exercises Return if any concerns or any worsening symptoms as discussed Otherwise follow up with [facility] as discussed Thank you Prescriptions: New naproxen 500 mg tablet 500 mg PO BID PRN (Reason: pain) Qty: 14 RF: 0 No Action cyclobenzaprine 5 mg tablet 5 mg PO BEDTIME PRN (Reason: muscle spasm) 30 Days Qty: 30 RF: 2 nitrofurantoin monohyd/m-cryst [Macrobid] 100 mg capsule 100 mg PO Q12H Qty: 14 RF: 0 metronidazole 500 mg tablet 500 mg PO BID 7 Days Qty: 14 RF: 0 ibuprofen 800 mg tablet 800 mg PO Q8H PRN (Reason: pain) Qty: 14 RF: 0 acetaminophen [Tylenol Extra Strength] 500 mg tablet 1,000 mg PO QID PRN (Reason: fever or pain) Qty: 14 RF: 0 oxycodone 5 mg tablet 5 mg PO BID PRN (Reason: pain) Qty: 10 RF: 0 Referrals: [facility] [Provider Group] - 1 week Interventions: ED Discharge Assessment Last Done: 06/06/20 14:10 Discharge Date/Time: 06/06/20 14:11
== END 2020-06-06 14:11 | disposition home or self-care (01) ==
LOC: HO.ED 14:05
PROVIDERS: Emergency Provider Emergency Medicine
DX: M54.6 Pain in thoracic spine (principal)
CPT/HCPCS: 99283

== ENCOUNTER → 2020-06-09 10:52 | Outpatient (BNVA) | payer BC, SELFPAY | PROVIDERS: Visit Provider Physician Assistant ==

== ENCOUNTER 2020-06-15 15:43 | Emergency (ER) | payer BC, SELFPAY ==
--- NOTE | ~2020-06-15 | XR_ITS ---
EXAMINATION: XR THORACIC SPINE CLINICAL INFORMATION: Upper back pain COMPARISON: None TECHNIQUE: 3 views of the thoracic spine were obtained. FINDINGS: There is no fracture or bone destruction seen and the vertebral alignment is normal. There is no disc space narrowing. There is no abnormality of the paraspinal soft tissues. Surgical clips are noted at the GE junction. XR/XR thoracic spine 3V IMPRESSION: An etiology for the patient's upper back pain has not been found. The thoracic spine is unremarkable.
[2020-06-15 15:44] VITALS: BP 101/66; PULSE 88; RESP 18; TEMP 36.3; O2SAT 99; BMI 27.6
[2020-06-15 17:31] VITALS: BP 98/60; PULSE 84; RESP 16; O2SAT 100
[2020-06-15] MEDS: Ketorolac Tromethamine 30 MG/ML VIAL IM (17:32)
--- NOTE | 2020-06-15 17:49 | ED_ITS ---
HPI - Back Pain/Injury General Chief Complaint: Back Pain/Injury Stated Complaint: neck and back pain Time Seen by Provider: 06/15/20 16:18 Source: patient Mode of arrival: ambulatory Limitations: no limitations History of Present Illness HPI Narrative: Patient presents to ED for upper back pain that is worse on movement radiating down left arm for 3 weeks. Patient denies any chest pain on inspiration, chest pain, shortness of breath, control use, recent long travel, recent surgery, calf pain, swelling of leg, swelling of upper extremities, redness of extremities, fever, history of blood clots or chills. Patient denies any recent trauma. Patient states having this for 3 weeks. Patient states she woke up with upper back pain that is worse on movement and movement of left upper extremity. Related Data Previous Rx's Medication Instructions Recorded nitrofurantoin monohyd/m-cryst 100 mg PO Q12H #14 cap 01/31/20 [Macrobid] metronidazole 500 mg PO BID 7 Days #14 tab 02/02/20 acetaminophen [Tylenol Extra 1,000 mg PO QID PRN #14 tab 05/29/20 Strength] ibuprofen 800 mg PO Q8H PRN #14 tab 05/29/20 oxycodone 5 mg PO BID PRN #10 tab 05/29/20 naproxen 500 mg PO BID PRN #14 tab 06/06/20 cyclobenzaprine 5 mg tablet 5 mg PO BEDTIME PRN 30 Days #30 tab 06/11/20 cyclobenzaprine 10 mg PO TID PRN #15 tab 06/15/20 Allergies Allergy/AdvReac Type Severity Reaction Status Date / Time lidocaine Allergy Swelling Verified 06/09/20 11:10 Review of Systems Review of Systems: Yes all other systems are reviewed and are negative Constitutional: Constitutional: Reports as per HPI and Reports no additional constitutional complaints Eyes: Eyes: Reports as per HPI and Reports no additional eye complaints ENT: Reports system reviewed and no additional complaints, except as documented and Reports as per HPI Cardiovascular: Cardiovascular: Reports as per HPI and Reports no additional cardiovascular complaints Respiratory: Respiratory: Reports as per HPI and Reports no additional respiratory complaints Gastrointestinal: Gastrointestinal: Reports as per HPI and Reports no additional gastrointestinal complaints Genitourinary: Genitourinary: Reports no additional female genitourinary complaints and Reports as per HPI Musculoskeletal: Musculoskeletal: Reports no additional musculoskeletal complaints, Reports as per HPI and Reports back pain Neurologic: Reports system reviewed and no additional complaints, except as documented and Reports as per HPI Psychiatric: Psychiatric: Reports no additional psychiatric complaints and Reports as per HPI [facility] Past Medical History Medical History No known health problems Surgical History Hx of bilateral breast reduction surgery Family History Family History Maternal Grandmother Breast cancer Father Prostate cancer Diabetes Paternal Grandfather Prostate cancer Mother Diabetes HTN (hypertension) Social History Social History Alcohol intake: never Smoking Status: Never smoker Advance Directives: No Advance Directives Information Provided: No Sexual orientation: Straight/Heterosexual Gender identity: female Physical Exam Vital Signs: Vital Signs: Last Vital Signs Temp 97.3 F 06/15/20 15:44 Pulse 84 06/15/20 17:31 Resp 16 06/15/20 17:31 BP 98/60 06/15/20 17:31 Pulse Ox 100 06/15/20 17:31 Body Mass Index 27.6 Const: General: cooperative, healthy appearing, comfortable, no acute dis tress, well developed, alert and awake; No Physically active Orientation/consciousness: patient oriented x3 HENMT: Head: Yes normal to inspection, Yes No palpable skull fracture present, Yes normocephalic, Yes atraumatic and No abrasion Eyes: General: appearance normal, both eyes and all related structures Neck: Neck: Yes normal visual inspection, Yes full ROM, Yes no lymphadenopathy, Yes no meningeal signs, Yes trachea midline, Yes supple and No tender Chest: Chest palpation & inspection: normal inspection of the chest and normal palpation of entire chest wall Cardio: Jugular venous distension: no JVD Heart sounds: S1 normal heart sound present and S2 normal heart sound present GI: Inspection: Yes normal to inspection and No abdominal wall ecchymosis Palpation (GI): Soft to palpation, not firm, nontender, no guarding and not rigid : General: No CVA tenderness and Yes no CVA tenderness Back/Spine/Pelvis: Back: no CVA tenderness, No CVA tenderness and back tenderness (Positive for upper thoracic spine tenderness on palpation.) Skin: General skin exam: no rashes or lesions noted and elasticity normal Neuro: General: patient oriented x3, no meningeal signs and CN's II-XI intact bilaterally Cranial nerves: Yes CN's II-XII intact bilaterally Extrem: Other: Lower extremities negative for swelling, pitting edema,redness, or calf pain. General: Yes normal to inspection and Yes full ROM Psych: Appearance: grossly normal, well kempt and not disheveled Course Course Course Narrative: Not suspecting PE. Patient denies any chest pain, shortness of breath, chest pain on inspiration, coughing up blood, control use, recent surgery, recent long travel, swelling of legs, or calf pain. Patient will be sent for thoracic x-ray due to spine tenderness. Pain most likely muscular due to patient states pain is worse on movement and movement of left upper extremity.. Reevaluation(s) Reevaluation #1: X-rays negative. Perc score is 0. Patient states she finished her naproxen and flexeril. Patient was only given cyclobenzaprine once a day 5 mg for the past 7 days. Will give her a new prescription of flexeril 10 mg t.i.d. not suspecting PE or cardiac etiolgoy. Before discharge patient was explained PE and cardiac symptoms. Time: 17:53 MDM - Back Pain/Injury MDM Narrative Medical decision making narrative: Muscle spasm Discharge Plan Discharge Clinical Impression: Back spasm Patient Disposition: Home, Self-Care Instructions: Muscle Spasm (ED), Back Pain (ED) Additional Instructions: Return to the ED immediately for chest pain, shortness of breath, chest pain on inspiration, coughing up blood, fever, chills, swelling of lower extremities, calf pain, urinary/bowel incontinence, neck stiffness, headache, photophobia, dizziness, or any other concerning symptoms. Recommend icy/hot on back for relief. You can take [id number] Motrin. Prescriptions: New cyclobenzaprine 10 mg tablet 10 mg PO TID PRN (Reason: muscle spasm) Qty: 15 RF: 0 No Action cyclobenzaprine 5 mg tablet 5 mg PO BEDTIME PRN (Reason: muscle spasm) 30 Days Qty: 30 RF: 2 nitrofurantoin monohyd/m-cryst [Macrobid] 100 mg capsule 100 mg PO Q12H Qty: 14 RF: 0 metronidazole 500 mg tablet 500 mg PO BID 7 Days Qty: 14 RF: 0 ibuprofen 800 mg tablet 800 mg PO Q8H PRN (Reason: pain) Qty: 14 RF: 0 acetaminophen [Tylenol Extra Strength] 500 mg tablet 1,000 mg PO QID PRN (Reason: fever or pain) Qty: 14 RF: 0 oxycodone 5 mg tablet 5 mg PO BID PRN (Reason: pain) Qty: 10 RF: 0 naproxen 500 mg tablet 500 mg PO BID PRN (Reason: pain) Qty: 14 RF: 0 Referrals: Flower Portillo MD [Primary Care Provider] - 2 days (Back spasm) Interventions: ED Discharge Assessment Last Done: 06/15/20 19:56 Discharge Date/Time: 06/15/20 19:59 Print Language: [place]
== END 2020-06-15 19:59 | disposition home or self-care (01) ==
PROVIDERS: Emergency Provider Emergency Medicine; PCP Internal Medicine
DX: M62.830 Muscle spasm of back (principal); M54.6 Pain in thoracic spine
CPT/HCPCS: 72072; 96372; 99284; J1885

== ENCOUNTER 2020-06-17 20:14 | Emergency (ER) | payer BC, SELFPAY | END 2020-06-18 00:23 | disposition left against medical advice (07) | PROVIDERS: Emergency Provider Emergency Medicine; PCP Internal Medicine | DX: M79.10 Myalgia, unspecified site (principal) | CPT/HCPCS: 99282 ==

== ENCOUNTER 2020-07-02 10:23 | Outpatient (RCR) | payer BC, SELFPAY ==
--- NOTE | 2020-07-02 13:49 | MHC.OT.OEV ---
[address] [phone] F: [phone] Occupational Therapy Evaluation Diagnosis: B/L Carpal Tunnel Syndrome Date of Onset: 05/29/20 Attending Provider: Kathrin Hamlin PA-C History of Current Condition: Pt woke in the morning w/ bilateral hand pain and swelling, went to the ED and primary complaint of right small finger and was placed in an extension orthosis for possible tendon injury, referred to ortho. Pt has history of multiple ED admissions over the past few months for upper back and arm related pain, unknown origin. 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 Living Situation, Family and/or Social Support: Lives w/ Current Level of Function and Occupation Self Care, Employment, Leisure: Difficulty reaching her back or hair during a shower does heavy lifting, opens tight containers Sleep: Sleep is better with splints Driving: Trouble turning on/off car w/ chaudhary Vision: Balance: Pain Assessment Pain Score: 3/10 resting pain, 10/10 w/ heavy use and stretch Pain Scale Used: Numeric (0 - 10) Pain Location and Description: Generalized pain in both hands, tight w/ hooking and composite extension - intrinsic tightness Reports she had pain upper trap-deltoid right side Aggravating Factors: Movement, heavy use Alleviating Factors: Advil Nighttime orthosis Skin and Soft Tissue Assessment Skin and Soft Tissue: Comments: WNL Nerve assessment Ulnar Nerve: B/L Impaired Median Nerve: WNL Radial Nerve: WNL Comments: Initial guarded/submaximal effort, improves after trials Small finger add 4-/5 Sensory Assessment Temperature: Light Touch: B/L Impaired Proprioception: Vibration: Comments: Pt reports numnbess and tingling in ulnar distribution worse in the mornings SW 4.31 B/L palms Edema Assessment Upper Extremity: Lower Extremity: Comments: WNL Dexterity Assessment Dexterity: WNL Comments: Special Tests Comments: (+) Tinels left wrist (+) pain w/ compression at left carpal tunnel (-) Phalen's B/L (-) Tinels at cubital B/L Mild (+) Barby's sign B/L'ly Mild (+) [place] B/L'ly AROM(PROM) Strength Cervical Cervical Flexion: Cervical Extension: Cervical Lateral Flexion: Cervical Rotation: Comments: WFL Shoulder Flexion: Extension: Abduction: Internal Rotation: External Rotation: Comments: WFL Flexion: Extension: Abduction: Internal Rotation: External Rotation: Comments: Elbow Flexion: Extension: Pronation: Supination: Comments: WFL Flexion: Extension: Pronation: Supination: Comments: Wrist Flexion: R 62 L 60 Extension: R 60 L 54 Ulnar Deviation: Radial Deviation: Comments: Flexion: Extension: Ulnar Deviation: Radial Deviation: Comments: Thumb Thumb CMC Flexion: Thumb MCP Flexion: Thumb IP Flexion: Radial Abduction: Palmar Abduction: Repton (Kapandji 0-10): Comments: Digits Index MCP: PIP: DIP: Long MCP: PIP: DIP: Ring MCP: PIP: DIP: Small MCP: PIP: DIP: Comments: Decreased end range IP flex, tight intrinsics Gross Grasp: R 8 L 2 Lateral Pinch: R 5 L 2 Two-Point Pinch: R 1 L 1 Three-Jaw Jerod: L 2 L 2 Comments: Patient Education Primary Language: Supervisor Mill Required: No Current Knowledge: Understands information with skills for self-management Teaching Method: Demonstration Handouts Verbal Education Needs Identified on Evaluation: ADL's Disease Information Equipment Use Exercise Pain Safety How did patient/family demonstrate learning? Patient demonstrates Patient verbalizes Barriers to Learning: None Readiness for Learning: Accepting Who was educated? Patient Comments: HEP w/ tendon glides, median and ulnar nerve glides Plan of Care Assessment: 30 yo female presents w/ B/L hand pain and numbness, per chart she has had multiple ED visits over the past few months for various complaints of UE pain. 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 She has been given bilateral nighttime orthoses and reports improvement in sleep. On assessment, she has significantly decreased strength, decreased end range digit flexion w/ intrinsic tightness and mild signs of ulnar and median neuropathy, left worse than right. She will benefit from cont'd OT services for progression of range and strength w/ optimal goals of minimizing pain and optimizing functional gains. STG Duration: 1 week Short Term Goals: Ind w/ HEP Ind w/ HEP Right gross grasp >15 lb Left gross grasp >10 lb LTG Duration: 4 weeks Metal Template Maker Goals: QuickDASH score <40 pts Full hook fist B/L gross grasp >25lb Frequency and Duration: The patient will be seen 1x/wk for 4 weeks Treatment Plan: Therapeutic Exercise Therapeutic Activity Home Exercise Program Splinting Neuro Re-ed Patient Education Desensitization/Sensory Re-ed Edema Control ADL Training Ultrasound Paraffin Fluidotherapy MHP Cold Packs Joint Mobilization Soft Tissue Mobilization Kinesiotaping *Pt w/ high copay Electronically Signed By: Veronika Han OTR/L Reviewed/agree with student documentation: N/A Therapist: Please sign and return to therapist, Thank you for your referral.
--- NOTE | 2020-07-14 11:23 | MHC.OT.DC ---
[address] [phone] F: [phone] Occupational Therapy Discharge Note Provider: Kathrin Hamlin PA-C Diagnosis: B/L Carpal Tunnel Syndrome Date of Surgery: Date of Evaluation: 07/02/20 Date of Discharge: 07/14/20 Treatments to Date: 1 Cancellations to Date: No Shows to Date: 3 Discharge Status: Patient Elected to Stop Visit Non-compliance Discharge Summary: From Initial Eval: 30 yo female presents w/ B/L hand pain and numbness, per chart she has had multiple ED visits over the past few months for various complaints of UE pain. 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 She has been given bilateral nighttime orthoses and reports improvement in sleep. On assessment, she has significantly decreased strength, decreased end range digit flexion w/ intrinsic tightness and mild signs of ulnar and median neuropathy, left worse than right. She will benefit from cont'd OT services for progression of range and strength w/ optimal goals of minimizing pain and optimizing functional gains. Current Status: Patient has no-showed for all scheduled follow up visits, we are discharging due to non-compliance. she has been educated on joint protection techniques and basic management of CTS. Electronically Signed By: DOMINGA Hoang/Luis Reviewed/agree with student documentation: N/A Therapist: Please Sign and return to therapist, thank you for your referral.
== END 2020-07-14 11:25 | disposition other institution (70) ==
LOC: HO.OT 10:23
PROVIDERS: Visit Provider Physician Assistant
DX: G56.03 Carpal tunnel syndrome, bilateral upper limbs (principal)
CPT/HCPCS: 97110; 97165

== ENCOUNTER 2021-07-07 10:15 | Outpatient (REF) | payer OTHER, SELFPAY ==
[2021-07-07 10:26] LABS: MANUAL DIFF FLAG NO
[2021-07-07 11:00] LABS: Basophils Percent Auto 0.6 % (0-2); Eosinophils Absolute Auto 0.1 X10*3/uL (0.0-0.4); Eosinophils Percent Auto 1.7 % (0-4); Hematocrit 33.5 % (37.0-47.0); Hemoglobin 10.3 g/dl (12.0-16.0); Imm Gran Abs Auto 0.03 X10*3/uL (0.00-0.03); Imm Gran Pct Auto 0.8 % (0.0-0.4); Lymphocytes Absolute Auto 0.9 X10*3/uL (1.2-4.9); Lymphocytes Percent Auto 24.2 % (20-40); Mean Corpuscular HGB Conc 30.7 g/dl (31.0-35.0); Mean Corpuscular Hemoglobin 24.8 pg (27.0-33.0); Mean Corpuscular Volume 80.7 fL (80.0-98.0); Mean Platelet Volume 11.4 fL (9.4-12.3); Monocytes Absolute Auto 0.4 X10*3/uL (0.1-1.2); Monocytes Percent Auto 11.4 % (2-11); Neutrophils Absolute Auto 2.2 x10*3/uL (2.0-8.3); Neutrophils Percent Auto 61.3 % (45-73); Platelet Count 227 X10*3/uL (160-400); Red Blood Count 4.15 X10*6/uL (4.20-5.50); Red Cell Distribution Width 13.5 % (11.0-16.0); White Blood Count 3.6 X10*3/uL (4.8-10.8)
[2021-07-07 11:51] LABS: Alanine Aminotransferase 30 U/L (0-31); Albumin Level 3.5 g/dL (3.5-5.0); Alkaline Phosphatase 53 U/L (39-117); Anion Gap 8 (12-20); Aspartate Amino Transferase 26 U/L (5-31); Bilirubin Total 0.4 mg/dL (0.0-1.0); Blood Urea Nitrogen 14 mg/dL (9-16); Calcium 8.6 mg/dL (8.4-10.2); Carbon Dioxide 24 mmol/L (22-29); Chloride 107 mmol/L (96-108); Cholesterol 158 mg/dL; Estimated Glomerular Filt Rate > 60; Glucose Fasting 76 mg/dL (60-99); HDL Cholesterol 48 mg/dL; Iron 60 mcg/dL (30-160); LDL Cholesterol Calculated 102 mg/dl; Percent Iron Saturation 18 % (15-50); Potassium 4.3 mmol/L (3.3-5.1); Sodium 135 mmol/L (135-145); Total Iron Binding Capacity 339 mcg/dL (228-428); Total Protein 7.7 g/dL (6.5-8.0); Triglycerides 43 mg/dL; Unsaturated Iron Binding 279 ug/dL
[2021-07-07 11:54] LABS: Thyroid Stimulating Hormone 0.94 uIU/mL (0.32-4.0)
[2021-07-12 13:11] LABS: Vitamin D 25-OH, D2 <4 ng/mL; Vitamin D 25-OH, D3 21 ng/mL; Vitamin D 25-OH, Total 21 ng/mL (30-100)
== END 2021-07-07 10:16 | disposition home or self-care (01) ==
LOC: HO.LAB 10:15
PROVIDERS: PCP Internal Medicine; Visit Provider Internal Medicine
DX: Z00.00 Encounter for general adult medical examination without abnormal findings (principal); E78.5 Hyperlipidemia, unspecified; D64.9 Anemia, unspecified; E55.9 Vitamin D deficiency, unspecified; E66.3 Overweight
CPT/HCPCS: 36415; 80053; 80061; 82306; 83540; 84443; 85025

== ENCOUNTER 2022-02-10 22:14 | Emergency (ER) | payer OTHER, SELFPAY ==
--- NOTE | ~2022-02-10 | CT_ITS ---
EXAMINATION: CT ABDOMEN AND PELVIS WITHOUT CONTRAST CLINICAL INFORMATION: Right flank pain. Question etiology COMPARISON: None. TECHNIQUE: Multidetector volumetric imaging was performed from the lung bases through the pubic symphysis. Sagittal and coronal reformatted images were obtained on the technologist workstation. This CT examination was performed using dose optimization techniques as appropriate, variously including the following: *Automated exposure control *Adjustment of mA and/or kV according to patient size (this includes techniques or standardized protocols for targeted exams where dose is matched to indication/reason for exam; i.e. extremities or head) *Use of iterative reconstruction technique DLP 498 FINDINGS: The lack of intravenous contrast limits evaluation of the solid visceral organs including the liver, spleen, pancreas, and kidneys. LUNG BASES: The visualized lung bases are unremarkable. No coronary artery calcification. LIVER, GALLBLADDER, AND BILIARY TREE: Limited non-contrast evaluation is normal. No gross focal hepatic lesion. Normal liver size and contour. No gross biliary ductal dilation. The gallbladder is unremarkable with no evidence of radiopaque gallstones, gallbladder wall thickening, or obvious pericholecystic inflammatory changes. PANCREAS: Limited non-contrast evaluation is normal. No benitez-pancreatic fluid. SPLEEN: Limited non-contrast evaluation is normal. ADRENAL GLANDS: Normal; no adrenal mass. KIDNEYS AND URETERS: Normal left kidney. Several 2 to 3 mm nonobstructing right renal calculi are seen. In addition there is mild right hydroureteronephrosis with the dilated ureter followed to a 5 mm right ureterovesical junction calculus. GASTROINTESTINAL TRACT: Small bowel and colon are non-dilated. No bowel wall thickening. No pericolonic inflammatory changes to suggest colitis or diverticulitis. Normal appendix. ABDOMINAL WALL: No hernia seen. LYMPH NODES: No pathologically enlarged lymph nodes in the abdomen or pelvis. VASCULAR: Normal caliber abdominal aorta. BLADDER: 5 mm right ureterovesical junction calculus as described above. PELVIC VISCERA: Normal noncontrast appearance of the uterus and ovaries. OSSEOUS STRUCTURES: No acute or suspicious osseous abnormalities. CT/CT abdomen pelvis wo IV con IMPRESSION: 5 mm right ureterovesical junction calculus results in mild right hydroureteronephrosis. Additional nonobstructing right renal calculi are present as well.
[2022-02-10 22:16] VITALS: BP 103/53; PULSE 76; RESP 18; TEMP 36.8; O2SAT 100; BMI 24.7
[2022-02-10 23:16] LABS: Appearance Urine Clear; Basophils Percent Auto 0.2 % (0-2); Color Urine Yellow; Glucose Urine UA Negative (Negative); Hematocrit 30.1 % (37.0-47.0); Hemoglobin 9.7 g/dl (12.0-16.0); Imm Gran Abs Auto 0.05 X10*3/uL (0.00-0.03); Imm Gran Pct Auto 0.4 % (0.0-0.4); Leukocyte Esterase Urine Negative (Negative); Lymphocytes Absolute Auto 0.4 X10*3/uL (1.2-4.9); MANUAL DIFF FLAG SCAN; Mean Corpuscular HGB Conc 32.2 g/dl (31.0-35.0); Mean Corpuscular Hemoglobin 24.6 pg (27.0-33.0); Mean Corpuscular Volume 76.4 fL (80.0-98.0); Mean Platelet Volume 11.4 fL (9.4-12.3); Monocytes Absolute Auto 0.4 X10*3/uL (0.1-1.2); Monocytes Percent Auto 3.2 % (2-11); Neutrophils Absolute Auto 11.9 x10*3/uL (2.0-8.3); Neutrophils Percent Auto 93.2 % (45-73); Nitrite Urine Negative (Negative); PH 5.5 (5.0-9.0); Platelet Count 214 X10*3/uL (160-400); Red Blood Count 3.94 X10*6/uL (4.20-5.50); Red Cell Distribution Width 13.8 % (11.0-16.0); SCAN SMEAR FLAG 1; Specific Gravity - Urine >= 1.030 (1.005-1.025); UMIC TRIGGER UA YES; Urine Blood Negative (Negative); Urine Ketones 15 mg/dL (Negative); Urine Protein 30 (1+) mg/dL (Neg-Trace); White Blood Count 12.8 X10*3/uL (4.8-10.8)
[2022-02-10 23:21] LABS: Bacteria Urine None Seen (None Seen); Hyaline Casts Urine 0-2 /LPF (0-2); RBC Urine 0-2 /HPF (0-2); Squamous Epithelial Cell Urine 0-2 /HPF (0-2); WBC Urine 0-5 /HPF (0-5)
[2022-02-10 23:36] LABS: SLIDE REVIEW VERIFIED
[2022-02-10 23:40] LABS: Alanine Aminotransferase 20 U/L (0-31); Albumin Level 3.8 g/dL (3.5-5.0); Alkaline Phosphatase 57 U/L (39-117); Anion Gap 14 (12-20); Aspartate Amino Transferase 25 U/L (5-31); Bilirubin Total 0.3 mg/dL (0.0-1.0); Blood Urea Nitrogen 20 mg/dL (9-16); Calcium 8.6 mg/dL (8.4-10.2); Carbon Dioxide 18 mmol/L (22-29); Chloride 107 mmol/L (96-108); Creatinine Clr Calc Pharmacy 93.1; Estimated Glomerular Filt Rate > 60; Glucose Random 121 mg/dL (60-115); Potassium 3.9 mmol/L (3.3-5.1); Sodium 135 mmol/L (135-145); Total Protein 8.5 g/dL (6.5-8.0)
[2022-02-11 04:33] VITALS: BP 110/58; PULSE 81; RESP 18; O2SAT 100
--- OUTSIDE RECORDS SUMMARY | 2022-02-11 04:41 | XMS_ITS | Continuity of Care Document ---
:1990 Author Organization [facility] Address [address] [place] [address]- Care Team Providers Name Role Phone Not on Staff, PCP Primary Care Physician Unavailable Encounter [facility] Date(s): 05/28/20 - 06/27/20 [facility] [address] [place] [address]- Attending Physician: Yue Díaz Admitting Physician: Yue Díaz Referring Physician: Yue Díaz
--- OUTSIDE RECORDS SUMMARY | 2022-02-11 04:41 | XMS_ITS | Continuity of Care Document ---
:1990 Author Organization [facility] [place] Address [address] [place] [address]- Encounter [facility] Date(s): 02/13/20 - 05/13/20 [facility] [place] [address] [facility] [address] [place] [address]- Attending Physician: AGATA SUÁREZ MD Admitting Physician: AGATA SUÁREZ MD Referring Physician: AGATA SUÁREZ MD
--- NOTE | 2022-02-11 05:31 | ED_ITS ---
HPI - Abdominal Pain General Chief Complaint: Abdominal Pain Stated Complaint: Abdominal Pain Time Seen by Provider: 02/11/22 05:30 Source: patient Mode of arrival: ambulatory Limitations: no limitations History of Present Illness HPI narrative: Patient no significant past abdominal complaints complaining of pain in the right flank area for last 2 days get got worse prior to arrival with difficulty urination no fever nor hematuria no frequency no family history of kidney stone no fever or chills no diarrhea does have constipation Related Data Previous Rx's Medication Instructions Recorded ferrous sulfate 325 mg (65 mg 325 mg PO DAILY 90 days #90 tabs 07/07/21 iron) tablet cholecalciferol (vitamin D3) 25 25 mcg PO DAILY 90 days #90 caps 07/12/21 mcg (1,000 unit) capsule oxycodone 5 mg tablet 5 mg PO Q6H PRN pain #20 tabs 02/11/22 tamsulosin 0.4 mg capsule (Flomax) 0.4 mg PO DAILY #7 caps 02/11/22 Allergies Allergy/AdvReac Type Severity Reaction Status Date / Time lidocaine Allergy Swelling Verified 07/07/21 09:56 Review of Systems Review of Systems Yes all other systems are reviewed and are negative [facility] Past Medical History Medical History (Updated 02/11/22 @ 07:38 by Renato Vines MD) Encounter for physical examination Hypovitaminosis D Normocytic anemia Surgical History Hx of bilateral breast reduction surgery Hx of laparoscopic gastric banding Family History Family History Maternal Grandmother Breast cancer Father Prostate cancer Diabetes Paternal Grandfather Prostate cancer Mother Diabetes HTN (hypertension) Social History Social History Housing: Apartment Alcohol intake: former Patient Tobacco Use Status: Never used Tobacco Smoked in Last 30 Days: No e-Cigarette/Vaping Use: Never Used Second Hand Smoke Exposure: No Use of substances other than those prescribed or required for medical reasons: No Advance Directives: No Advance Directives Information Provided: Yes Patient : No service: No Current occupational status: employed Current occupational exposures/hazards: No Sexual orientation: Straight/Heterosexual Gender identity: Female Cognitive needs: No Hearing needs: No Vision needs: Yes Physical Exam ED Vital Signs: Vital Signs - 24 hr 02/10/22 22:16 02/11/22 04:33 02/11/22 07:14 Temperature 98.2 F 98.1 F Pulse Rate 76 81 59 Respiratory Rate 18 18 20 Blood Pressure 103/53 L 110/58 L 95/54 L Pulse Oximetry 100 100 100 Oxygen Delivery Method Room Air Room Air Room Air BMI result Body Mass Index 24.7 Appearance: Alert. Oriented X3. in moderate distress. Eyes: No pallor or icterus ENT: Pharynx normal. Oral Mucosa moist Neck: Normal inspection. Neck supple. CVS: Normal heart rate and rhythm. Pulses normal. Respiratory: No respiratory distress. Equal air entry bilateral, no wheezing/rales/rhonchi Abdomen: Soft and nontender. Bowel sounds are present, no mass palpable, r CVA tenderness Skin: Skin warm and dry. Normal skin color. Normal skin turgor. Extremities: No lower extremity edema. No calf tenderness Neuro: Oriented X 3. No motor deficit. No sensory deficit.No cerebellar signs , cranial nerves II-XII intact Medications Administered Discontinued Medications Generic Name Dose Route Start Last Admin Trade Name Freq PRN Reason Stop Dose Admin Sodium Chloride 1,000 mls @ 999 mls/hr 02/11/22 05:47 02/11/22 05:59 Ns IV 02/11/22 06:47 999 mls/hr .Q1H1M ONE Administration Ketorolac Tromethamine 30 mg 02/11/22 05:47 02/11/22 05:59 Ketorolac Tromethamine 30 Mg/Ml Vial IVPUSH 02/11/22 05:48 30 mg ONCE ONE Administration MDM - Abdominal Pain MDM Narrative Medical decision making narrative: Patient's 5 mm right UVJ stone pain free at this time will discharge patient home on pain management advised to follow with urologist Differential Diagnosis Differential diagnosis: Likely abdominal pain and calculus of kidney Lab Data Attestation: I reviewed the patient's lab results. Result diagrams: 02/10/22 23:09 02/10/22 23:09 Labs: Lab Results 02/10/22 02/10/22 02/10/22 Range/Units 23:09 23:09 23:09 WBC 12.8 H (4.8-10.8) X10*3/uL RBC 3.94 L (4.20-5.50) X10*6/uL Hgb 9.7 L (12.0-16.0) g/dl Hct 30.1 L (37.0-47.0) % MCV 76.4 L (80.0-98.0) fL MCH 24.6 L (27.0-33.0) pg MCHC 32.2 (31.0-35.0) g/dl RDW 13.8 (11.0-16.0) % Plt Count 214 (160-400) X10*3/uL MPV 11.4 (9.4-12.3) fL Immature Gran % (Auto) 0.4 (0.0-0.4) % Neut % (Auto) 93.2 H (45-73) % Lymph % (Auto) 3.0 L (20-40) % [place] % (Auto) 3.2 (2-11) % Eos % (Auto) 0.0 (0-4) % Baso % (Auto) 0.2 (0-2) % Lymph # (Auto) 0.4 L (1.2-4.9) X10*3/uL [place] # (Auto) 0.4 (0.1-1.2) X10*3/uL Eos # (Auto) 0.0 (0.0-0.4) X10*3/uL Baso # (Auto) 0.0 (0.0-0.2) X10*3/uL Abs Immat Gran (auto) 0.05 H (0.00-0.03) X10*3/uL Absolute Neuts (auto) 11.9 H (2.0-8.3) x10*3/uL Absolute Nucleated RBC 0.000 (0.0-0.012) X10*3/uL Nucleated RBC % (auto) 0.0 (0.0-0.2) /100WBC Smear Tech's Comments VERIFIED Sodium 135 (135-145) mmol/L Potassium 3.9 (3.3-5.1) mmol/L Chloride 107 (96-108) mmol/L Carbon Dioxide 18 L (22-29) mmol/L Anion Gap 14 (12-20) BUN 20 H (9-16) mg/dL Creatinine 0.80 (0.5-1.4) mg/dL Estim Creat Clear Calc 93.1 Estimated GFR > 60 Random Glucose 121 H (60-115) mg/dL Calcium 8.6 (8.4-10.2) mg/dL Total Bilirubin 0.3 (0.0-1.0) mg/dL AST 25 (5-31) U/L ALT 20 (0-31) U/L Alkaline Phosphatase 57 (39-117) U/L Total Protein 8.5 H (6.5-8.0) g/dL Albumin 3.8 (3.5-5.0) g/dL Urine Color Yellow Urine Appearance Clear Urine pH 5.5 (5.0-9.0) Ur Specific [place] >= 1.030 H (1.005-1.025) Urine Protein 30 (1+) H (Neg-Trace) mg/dL Urine Glucose (UA) Negative (Negative) mg/dL Urine Ketones 15 (Negative) mg/dL Urine Blood Negative (Negative) Urine Nitrite Negative (Negative) Ur Leukocyte Esterase Negative (Negative) Urine RBC 0-2 (0-2) /HPF Urine WBC 0-5 (0-5) /HPF Ur Squamous Epith Cells 0-2 (0-2) /HPF Urine Bacteria None Seen (None Seen) Hyaline Casts 0-2 (0-2) /LPF Urine Test (NEGATIVE) 02/10/22 Range/Units 23:09 WBC (4.8-10.8) X10*3/uL RBC (4.20-5.50) X10*6/uL Hgb (12.0-16.0) g/dl Hct (37.0-47.0) % MCV (80.0-98.0) fL MCH (27.0-33.0) pg MCHC (31.0-35.0) g/dl RDW (11.0-16.0) % Plt Count (160-400) X10*3/uL MPV (9.4-12.3) fL Immature Gran % (Auto) (0.0-0.4) % Neut % (Auto) (45-73) % Lymph % (Auto) (20-40) % [place] % (Auto) (2-11) % Eos % (Auto) (0-4) % Baso % (Auto) (0-2) % Lymph # (Auto) (1.2-4.9) X10*3/uL [place] # (Auto) (0.1-1.2) X10*3/uL Eos # (Auto) (0.0-0.4) X10*3/uL Baso # (Auto) (0.0-0.2) X10*3/uL Abs Immat Gran (auto) (0.00-0.03) X10*3/uL Absolute Neuts (auto) (2.0-8.3) x10*3/uL Absolute Nucleated RBC (0.0-0.012) X10*3/uL Nucleated RBC % (auto) (0.0-0.2) /100WBC Smear Tech's Comments Sodium (135-145) mmol/L Potassium (3.3-5.1) mmol/L Chloride (96-108) mmol/L Carbon Dioxide (22-29) mmol/L Anion Gap (12-20) BUN (9-16) mg/dL Creatinine (0.5-1.4) mg/dL Estim Creat Clear Calc Estimated GFR Random Glucose (60-115) mg/dL Calcium (8.4-10.2) mg/dL Total Bilirubin (0.0-1.0) mg/dL AST (5-31) U/L ALT (0-31) U/L Alkaline Phosphatase (39-117) U/L Total Protein (6.5-8.0) g/dL Albumin (3.5-5.0) g/dL Urine Color Urine Appearance Urine pH (5.0-9.0) Ur Specific [place] (1.005-1.025) Urine Protein (Neg-Trace) mg/dL Urine Glucose (UA) (Negative) mg/dL Urine Ketones (Negative) mg/dL Urine Blood (Negative) Urine Nitrite (Negative) Ur Leukocyte Esterase (Negative) Urine RBC (0-2) /HPF Urine WBC (0-5) /HPF Ur Squamous Epith Cells (0-2) /HPF Urine Bacteria (None Seen) Hyaline Casts (0-2) /LPF Urine Test NEGATIVE (NEGATIVE) Discharge Plan Discharge Clinical Impression: Calculus of kidney Patient Disposition: Home, Self-Care Additional Instructions: Drink plenty of fluids Pain medication as prescribed Flomax to keep the kidney tubes open Follow with urologist Report to ER if recurrence of severe pain Prescriptions: New oxycodone 5 mg tablet 5 mg PO Q6H PRN (Reason: pain) Qty: 20 0RF Rx Instructions: Partial Fill upon patient request. tamsulosin [Flomax] 0.4 mg capsule 0.4 mg PO DAILY Qty: 7 0RF No Action ferrous sulfate 325 mg (65 mg iron) tablet 325 mg PO DAILY 90 Days Qty: 90 0RF cholecalciferol (vitamin D3) 25 mcg (1,000 unit) capsule 25 mcg PO DAILY 90 Days Qty: 90 1RF Referrals: Олег Gardner MD [Physician] - 3 days
[2022-02-11 05:55] LABS: UPreg QC Valid YES; Urine Pregnancy NEGATIVE (NEGATIVE)
[2022-02-11] MEDS: Ketorolac Tromethamine 30 MG/ML VIAL IVPUSH (05:59)
[2022-02-11] MEDS: 0.9 % Sodium Chloride 1,000 ML 999 ML IV (05:59)
[2022-02-11 07:14] VITALS: BP 95/54; PULSE 59; RESP 20; TEMP 36.7; O2SAT 100
[2022-02-11] MEDS: Tamsulosin HCL 0.4 MG CAPSULE PO (08:05)
[2022-02-11] MEDS: oxyCODONE HCl Immed Release 5 MG TABLET PO (08:05)
--- NOTE | 2022-02-11 08:17 | PC.NURSE ---
patient a/ox4 . breathing even and unlabored . patient medicated with oxycodone and flomax prior to discharge , patients significant other will be driving her home . went over discharge instructions as ordered by provider . patient given contact information for follow up with urologist Dr. Gardner . patient to return to ED if symptoms worsen . No questions at this time .
== END 2022-02-11 08:20 | disposition home or self-care (01) ==
PROVIDERS: Emergency Provider Internal Medicine; PCP Student in an Organized Health Care Education/Training Program
DX: N20.0 Calculus of kidney (principal); R10.31 Right lower quadrant pain; Z79.899 Other long term (current) drug therapy
CPT/HCPCS: 36415; 74176; 80053; 81001; 81025; 85025; 96361; 96374; 99284; 99285; J1885

== ENCOUNTER 2022-03-07 23:56 | Emergency (ER) | payer OTHER, SELFPAY ==
[2022-03-08 00:03] VITALS: BP 103/67; PULSE 84; RESP 16; TEMP 37; O2SAT 99; BMI 25.1
[2022-03-08 00:36] LABS: Appearance Urine Clear; Color Urine Yellow; Glucose Urine UA Negative (Negative); Leukocyte Esterase Urine Small (1+) (Negative); Nitrite Urine Negative (Negative); PH 5.5 (5.0-9.0); UMIC TRIGGER UACC YES; Urine Blood Negative (Negative); Urine Ketones Trace mg/dL (Negative); Urine Protein Negative (Neg-Trace)
[2022-03-08 00:36] LABS: Basophils Percent Auto 0.3 % (0-2); Eosinophils Absolute Auto 0.1 X10*3/uL (0.0-0.4); Hematocrit 31.8 % (37.0-47.0); Hemoglobin 10.1 g/dl (12.0-16.0); Imm Gran Abs Auto 0.03 X10*3/uL (0.00-0.03); Imm Gran Pct Auto 0.8 % (0.0-0.4); Lymphocytes Absolute Auto 0.8 X10*3/uL (1.2-4.9); Lymphocytes Percent Auto 20.7 % (20-40); MANUAL DIFF FLAG NO; Mean Corpuscular HGB Conc 31.8 g/dl (31.0-35.0); Mean Corpuscular Hemoglobin 24.3 pg (27.0-33.0); Mean Corpuscular Volume 76.6 fL (80.0-98.0); Mean Platelet Volume 10.6 fL (9.4-12.3); Monocytes Absolute Auto 0.5 X10*3/uL (0.1-1.2); Monocytes Percent Auto 11.6 % (2-11); Neutrophils Absolute Auto 2.5 x10*3/uL (2.0-8.3); Neutrophils Percent Auto 63.6 % (45-73); Platelet Count 235 X10*3/uL (160-400); Red Blood Count 4.15 X10*6/uL (4.20-5.50); Red Cell Distribution Width 14.3 % (11.0-16.0)
[2022-03-08 00:41] LABS: Bacteria Urine None Seen (None Seen); Hyaline Casts Urine 0-2 /LPF (0-2); RBC Urine 0-2 /HPF (0-2); UACC Culture Trigger YES
[2022-03-08 00:52] LABS: UPreg QC Valid YES; Urine Pregnancy NEGATIVE (NEGATIVE)
[2022-03-08 00:59] LABS: Alanine Aminotransferase 21 U/L (0-31); Albumin Level 3.6 g/dL (3.5-5.0); Alkaline Phosphatase 55 U/L (39-117); Anion Gap 11 (12-20); Aspartate Amino Transferase 25 U/L (5-31); Blood Urea Nitrogen 12 mg/dL (9-16); Calcium 8.6 mg/dL (8.4-10.2); Carbon Dioxide 21 mmol/L (22-29); Chloride 109 mmol/L (96-108); Creatinine Clr Calc Pharmacy 111.9; Estimated Glomerular Filt Rate > 60; Glucose Random 92 mg/dL (60-115); Potassium 3.8 mmol/L (3.3-5.1); Sodium 137 mmol/L (135-145); Total Protein 8.2 g/dL (6.5-8.0)
[2022-03-08 02:09] LABS: Bilirubin Total 0.2 mg/dL (0.0-1.0)
[2022-03-08 04:38] VITALS: BP 117/76; PULSE 79; RESP 18; TEMP 36.6; O2SAT 97
[2022-03-08 05:56] VITALS: BP 100/56; PULSE 75; RESP 16; TEMP 36.2; O2SAT 100
--- NOTE | 2022-03-08 08:03 | ED_ITS ---
HPI - General Adult General Chief complaint: Abdominal Pain Stated complaint: Kidney Stone? Pain Time Seen by Provider: 03/08/22 08:02 Source: patient Mode of arrival: ambulatory Limitations: no limitations History of Present Illness HPI narrative: Patient is a 31 year old assigned female at with a history of kidney stones presenting to the emergency department today with left sided flank pain. Patient states that this pain has been going on for about a month now and she was diagnosed with a kidney stone on 02/11/22. She states that a stone has since passed. Patient denies any dizziness, lightheadedness, abdominal pain, nausea, vomiting, fever, chills, blurry vision, double vision, loss of vision, chest pain, difficulty breathing, shortness of breath, back pain, night sweats, pain with urination, increased urinary frequency, increased urinary urgency, blood in her urine or stool, syncope or a near syncopal episode, recent trauma or falls, bowel incontinence, bladder incontinence, bowel retention, bladder retention, or any other complaints at this time. Onset (ago): month(s) (1) Location: left (flank) Radiation: non-radiation Severity: mild Severity scale (1-10): 3 Quality: aching and dull Pain Consistency: constant Relieving factors: none Exacerbating factors: none Associated symptoms: denies other symptoms Treatments prior to arrival: none Related Data Previous Rx's Medication Instructions Recorded ferrous sulfate 325 mg (65 mg 325 mg PO DAILY 90 days #90 tabs 07/07/21 iron) tablet cholecalciferol (vitamin D3) 25 25 mcg PO DAILY 90 days #90 caps 07/12/21 mcg (1,000 unit) capsule oxycodone 5 mg tablet 5 mg PO Q6H PRN pain #20 tabs 02/11/22 tamsulosin 0.4 mg capsule (Flomax) 0.4 mg PO DAILY #7 caps 02/11/22 cephalexin 500 mg capsule 500 mg PO Q6H 7 days #28 caps 03/08/22 Allergies Allergy/AdvReac Type Severity Reaction Status Date / Time lidocaine Allergy Swelling Verified 07/07/21 09:56 Review of Systems Constitutional: Constitutional: Reports no additional constitutional complaints, Denies chills, Denies fever(s) and Denies night sweats Eyes: Eyes: Reports no additional eye complaints, Denies blurry vision, Denies change in vision, Denies diplopia, Denies eye discharge, Denies loss of vision and Denies eye pain ENT: Denies dizziness Cardiovascular: Cardiovascular: Reports no additional cardiovascular complaints, Denies chest pain, Denies lightheadedness, Denies Loss of Consciousness and Denies dyspnea Respiratory: Respiratory: Reports no additional respiratory complaints and Denies dyspnea Gastrointestinal: Gastrointestinal: Reports no additional gastrointestinal complaints, Denies abdominal pain, Denies melena, Denies hematochezia, Denies change in bowel habits and Denies change in stool character Genitourinary: Genitourinary: Denies hematuria, Denies urinary frequency, Denies dysuria, Reports flank pain (left sided), Denies urinary incontinence, Denies urinary hesitancy and Denies urinary urgency Musculoskeletal: Musculoskeletal: Reports no additional musculoskeletal complaints, Denies numbness and Denies tingling Neurologic: Denies dizziness, Denies loss of vision, Denies numbness and Denies tingling Psychiatric: Psychiatric: Reports no additional psychiatric complaints Endocrine: Endocrine: Reports no additional endocrine complaints Hematologic/Lymphatic: Hematologic/Lymphatic: Reports no additional hemat ologic/lymphatic complaints Allergic/Immunologic: Allergic/Immunologic: Reports no additional allergic/immunologic complaints PMFSH Past Medical History Attestation statement: The following information was validated with the patient. Source: old records reviewed Medical History Encounter for physical examination Hypovitaminosis D Normocytic anemia Surgical History Hx of bilateral breast reduction surgery Hx of laparoscopic gastric banding Family History Family History Maternal Grandmother Breast cancer Father Prostate cancer Diabetes Paternal Grandfather Prostate cancer Mother Diabetes HTN (hypertension) Social History Social History Housing: Apartment Alcohol intake: former Patient Tobacco Use Status: Never used Tobacco e-Cigarette/Vaping Use: Never Used Second Hand Smoke Exposure: No Advance Directives: No Advance Directives Information Provided: Yes service: No Current occupational status: employed Current occupational exposures/hazards: No Sexual orientation: Straight/Heterosexual Gender identity: Female Cognitive needs: No Hearing needs: No Vision needs: Yes Physical Exam ED Vital Signs: Vital Signs - 24 hr 03/08/22 00:03 03/08/22 04:38 03/08/22 05:56 Temperature 98.6 F 97.9 F 97.2 F Pulse Rate 84 79 75 Respiratory Rate 16 18 16 Blood Pressure 103/67 117/76 100/56 L Pulse Oximetry 99 97 100 Oxygen Delivery Method Room Air Room Air Room Air BMI result Body Mass Index 25.1 Const General: cooperative, no acute distress, alert and awake Nutritional Appearance: well nourished Orientation/consciousness: patient oriented x3 Limitations: no limitations HENMT Head: Yes normal to inspection and Yes atraumatic Ears: hearing grossly normal bilaterally and external ears normal General nose exam: Normal external nose present, no nasal discharge noted and no epistaxis Face and sinus: Yes normal facial exam, No abrasion and No laceration Mouth: Normal oral and palatal mucosa present, no drooling and no muffled voice Eyes General: appearance normal, both eyes and all related structures Periorbital: periorbital findings normal Eyelids: Yes eyelids normal Conjunctivae: conjunctivae normal Pupils: Equal, round and reactive pupils present EOM: EOMs intact bilaterally Neck Neck: Yes normal visual inspection, Yes full ROM and Yes no lymphadenopathy Chest Chest palpation & inspection: normal inspection of the chest Resp Effort & Inspection: normal respiratory effort and able to speak in complete sentences Auscultation: clear to auscultation bilaterally Cardio Rate: regular rate Rhythm: regular rhythm GI Inspection: Yes normal to inspection Palpation (GI): Soft to palpation, not firm, nontender, no guarding and not rigid General: Yes no CVA tenderness Back/Spine/Pelvis Back: no CVA tenderness Neuro General: patient oriented x3 and moves all extremities Cranial nerves: Yes Equal, round and reactive pupils present Cognition (Neuro): normal cognition Motor exam (neuro): 5/5 motor strength present throughout Sensory Exam: Normal double simultaneous stimulation for sensation Coordination: [id number] test normal Extrem General: Yes normal to inspection, Yes full ROM and Yes capillary refill normal Psych Appearance: grossly normal Mental Status: mental status grossly normal Affect: normal affect Attitude: cooperative Thought process: Normal thought process present Thought content: Normal thought content present Insight: Good insight present (Psych) Medications Administered Discontinued Medications Generic Name Dose Route Start Last Admin Trade Name Freq PRN Reason Stop Dose Admin Ketorolac Tromethamine 15 mg 03/08/22 08:08 03/08/22 09:11 Ketorolac Tromethamine 15 Mg/Ml Vial IM 03/08/22 08:09 Not Given ONCE ONE Medical Decision Making Medical Decision Making MDM Narrative: Patient is a 31 year old assigned female at with a history of kidney stones presenting to the emergency department today with left sided flank pain. Patient's physical exam was unremarkable. Patient's blood work was unremarkable. Patient's urine showed a possible urinary tract infection. Patient to be covered prophylactically for UTI. I explained my physical exam findings as well as all test results to the patient. I answered all questions asked by the patient. Patient received IM Toradol which she stated helped her symptoms significantly. I stressed the importance of the patient taking her medication as prescribed. I stressed the importance of the patient following up with her primary care provider. I stressed the importance of the patient returning to the emergency department immediately if her symptoms were to worsen or if she were to develop any dizziness, shortness of breath, difficulty breathing, chest pain, blurry vision, loss of vision, nausea, vomiting, abdominal pain, fever, chills, back pain, or any other complaints. Patient verbalized agreement and understanding with this treatment plan and discharge. Differential Diagnoses: Differential diagnosis (renal calculi, UTI) Differential Diagnosis: The differential diagnosis associated with the patient?s presentation includes: Tests considered but not performed: Tests Considered But Not Performed (CT abdomen / pelvis. ) The following testing was considered but ultimately not selected after discussion with patient/family. Discharge Plan Discharge Clinical Impression: Urinary tract infection, Calculus, renal Patient Disposition: Home, Self-Care Instructions: Kidney Stones (ED), Urinary Tract Infection in Women (ED) Additional Instructions: Follow up with your primary care provider. Return to the emergency department immediately if your symptoms worsen or if you develop any dizziness, shortness of breath, difficulty breathing, chest pain, blurry vision, loss of vision, naus ea, vomiting, abdominal pain, fever, chills, back pain, or any other complaints. Prescriptions: New cephalexin 500 mg capsule 500 mg PO Q6H 7 Days Qty: 28 0RF No Action ferrous sulfate 325 mg (65 mg iron) tablet 325 mg PO DAILY 90 Days Qty: 90 0RF cholecalciferol (vitamin D3) 25 mcg (1,000 unit) capsule 25 mcg PO DAILY 90 Days Qty: 90 1RF oxycodone 5 mg tablet 5 mg PO Q6H PRN (Reason: pain) Qty: 20 0RF Rx Instructions: Partial Fill upon patient request. tamsulosin [Flomax] 0.4 mg capsule 0.4 mg PO DAILY Qty: 7 0RF Referrals: Flower Portillo MD [Primary Care Provider] - Stand Alone Forms: Work/School Release Interventions: ED Discharge Assessment Last Done: 03/08/22 09:11 Discharge Date/Time: 03/08/22 09:12 Print Language: Luxembourgish
== END 2022-03-08 09:12 | disposition home or self-care (01) ==
PROVIDERS: Emergency Provider Emergency Medicine; PCP Internal Medicine
DX: N39.0 Urinary tract infection, site not specified (principal); N20.0 Calculus of kidney; Z79.899 Other long term (current) drug therapy
CPT/HCPCS: 36415; 80053; 81001; 81025; 85025; 87086; 99283

== ENCOUNTER 2022-07-13 15:02 | Outpatient (REF) | payer OTHER, SELFPAY ==
[2022-07-13 15:14] LABS: MANUAL DIFF FLAG NO
[2022-07-13 16:59] LABS: Basophils Percent Auto 0.4 % (0-2); Eosinophils Absolute Auto 0.1 X10*3/uL (0.0-0.4); Eosinophils Percent Auto 2.1 % (0-4); Hematocrit 32.4 % (37.0-47.0); Hemoglobin 10.1 g/dl (12.0-16.0); Imm Gran Abs Auto 0.05 X10*3/uL (0.00-0.03); Lymphocytes Absolute Auto 0.9 X10*3/uL (1.2-4.9); Mean Corpuscular HGB Conc 31.2 g/dl (31.0-35.0); Mean Corpuscular Hemoglobin 23.9 pg (27.0-33.0); Mean Corpuscular Volume 76.8 fL (80.0-98.0); Mean Platelet Volume 12.3 fL (9.4-12.3); Monocytes Absolute Auto 0.5 X10*3/uL (0.1-1.2); Monocytes Percent Auto 10.6 % (2-11); Neutrophils Absolute Auto 3.2 x10*3/uL (2.0-8.3); Neutrophils Percent Auto 66.9 % (45-73); Platelet Count 274 X10*3/uL (160-400); Red Blood Count 4.22 X10*6/uL (4.20-5.50); Red Cell Distribution Width 14.7 % (11.0-16.0); White Blood Count 4.8 X10*3/uL (4.8-10.8)
[2022-07-13 17:36] LABS: Iron 39 mcg/dL (30-160); Percent Iron Saturation 11 % (15-50); Total Iron Binding Capacity 341 mcg/dL (228-428); Unsaturated Iron Binding 302 ug/dL
[2022-07-13 18:05] LABS: Folate 7.8 ng/mL (> or = 4.0); Vitamin B12 356 pg/mL (200-900); Vitamin D 25-OH Total 19.9 ng/mL (>30)
== END 2022-07-13 15:03 | disposition home or self-care (01) ==
LOC: HO.LAB 15:02
PROVIDERS: PCP Internal Medicine; Visit Provider Internal Medicine
DX: D64.9 Anemia, unspecified (principal); E53.8 Deficiency of other specified B group vitamins; E55.9 Vitamin D deficiency, unspecified
CPT/HCPCS: 36415; 82306; 82607; 82746; 83540; 85025

== ENCOUNTER 2023-07-20 08:35 | Outpatient (AMB) | payer OTHER, SELFPAY ==
[2023-07-20 08:37] VITALS: BP 120/80; BMI 28.7
--- NOTE | 2023-07-20 08:37 | A.OFFPC_ITS ---
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 Accompanied by: Self / Same As Patient Allergies lidocaine Allergy (Verified 07/20/23 09:07) Swelling Medication List - Last Reconciled 07/20/23 by Flower Cardenas MD No Known Home Meds Tobacco use date assessed: 07/20/23 Dental Screening Dental Screen Date: 07/20/23 Did you have a dental visit in the last 12 months?: Yes Did you have a dental problem in the last 6 months where you did not have access to dental care?: No Was dental information given to patient?: Patient has dentist HPI HPI Comments History of Present Illness Details This is a 33-year-old female that comes for her physical exam. Pap smears are up-to-date as per patient. Last 1 was March 2023 and was normal. Denies any chest pain or shortness of breath. Complains of a rash that can happen either summer or winter and occasionally is pruritic. Does not know the allergen. [facility] Medical History (Updated 07/20/23 @ 10:11 by Flower Cardenas MD) Mild major depression Hypovitaminosis D Normocytic anemia Encounter for physical examination Surgical History Hx of laparoscopic gastric banding Hx of bilateral breast reduction surgery Family History Maternal Grandmother Breast cancer Father Prostate cancer Diabetes Paternal Grandfather Prostate cancer Mother Diabetes HTN (hypertension) Social History Housing: Apartment Alcohol intake: former Patient Tobacco Use Status: Never used Tobacco e-Cigarette/Vaping Use: Never Used Second Hand Smoke Exposure: No service: No Current occupational status: unemployed Sexual orientation: Straight/Heterosexual Gender identity: Female Cognitive needs: No Hearing needs: No Vision needs: Yes Female Reproductive History Menstrual Age of Menarche: 15 Questionnaire PHQ-9 Over the last 2 weeks, how often have you been bothered by any of the following problems? 1. Little interest or pleasure in doing things: not at all 2. Feeling down, depressed, or hopeless: not at all 3. Trouble falling or staying asleep, or sleeping too much: not at all 4. Feeling tired or having little energy: not at all 5. Poor appetite or overeating: not at all 6. Feeling bad about yourself - or that you are a failure or have let yourself or your family down: not at all 7. Trouble concentrating on things, such as reading the newspaper or watching television: not at all 8. Moving or speaking so slowly that other people could have noticed. Or the opposite - being so fidgety or restless that you have been moving around a lot more than usual: not at all 9. Thoughts that you would be better off or of hurting yourself in some way: not at all Total score: 0 Depression Screening Interpretation: Negative Depression Screening Done: Yes 47493 - PHQ-9 Billing: Yes Source: Developed by Drs. Daniel Pak, Liliam Potts, Aamir Cordoba and colleagues, with an educational ainsley from [employer]. Thrive Questionnaire Date Thrive assessed: 07/20/23 I am a: Patient What is your living situation today?: I have a steady place to live Within the past 12 months, did the food you bought not last and you didn't have the money to get more?: Never true Within the past 12 months, did you worry whether your food would run out before you got money to buy more?: Never true Do you have trouble paying for medicines?: No Do you have trouble getting transportation to medical appointments?: No Do you have trouble paying your heating and electricity bill?: No Do you have trouble taking care of your child, family member or friend?: No Do you have trouble with day-to-day activities such as bathing, preparing meals, shopping, managing finances, etc.?: No Are you currently unemployed and looking for a job?: No Are you interested in more education?: No Please select the resources that you would like help with: None Currently or been in a relationship where the following occur: no concerns reported THRIVE Score: 0 AUDIT C Alcohol Use Questionnaire (AUDIT-C) 1. How often do you have a drink containing alcohol?: Never Total Score: 0 VIKRAM-7 AMB Questionnaire VIKRAM-7 Date VIKRAM - 7 assessed: 07/20/23 Feeling nervous, anxious, or on edge: 0 = Not at all Not being able to stop or control worryin = Not at all Worrying too much about different things: 0 = Not at all Trouble relaxin = Not at all Being so restless that it is hard to sit still: 0 = Not at all Becoming easily annoyed or irritable: 0 = Not at all Feeling afraid as if something awful might happen: 0 = Not at all Total VIKRAM-7 score (0-4 normal; 5-9 mild; 10-14 moderate; 15-21 severe): 0 Source: Developed by Drs. Daniel Pak, Liliam Potts, Aamir Cordoba and colleagues, with an educational ainsley from [employer]. VIKRAM-7 Assessment Billing VIKRAM-7 Assessment Tool: VIKRAM-7 Assessment 23625 Review of Systems Const All systems reviewed & are unremarkable except as noted in HPI and below Eyes Reports no additional complaints, Denies change in vision and Denies other visual disturbances Card Denies chest pain at rest, Denies chest pain with activity, Denies edema, Denies irregular heart rhythm, Denies claudication, Denies dyspnea, Denies dyspnea on exertion, Denies orthopnea, Denies paroxysmal nocturnal dyspnea and Denies slow heart rate Resp Denies cough, Denies dyspnea and Denies dyspnea on exertion Physical exam (Primary Care) Vital Signs: Last Vital Signs BP 120/80 07/20/23 08:37 BMI result Body Mass Index 28.7 Tobacco/Smoking Status: Tobacco use Status Tobacco use date assessed 07/20/23 07/20/23 08:41 Patient Tobacco Use Status Never used Tobacco 07/20/23 08:41 e-Cigarette/Vaping Use Never Used 07/20/23 08:41 PHQ-9: PHQ-9 Score PHQ-9: Total score 0 07/20/23 09:10 Depression Screening Interpretation: Negative Thrive Assessment: Date of Thrive Assessment Date Thrive assessed 07/20/23 07/20/23 08:44 Currently or been in a relationship where the following occur: no concerns reported Const Orientation/consciousness: patient oriented x3 HENMT Head: Yes normal to inspection, Yes normocephalic and Yes atraumatic Ears: external ears normal Eyes General: appearance normal, both eyes and all related structures Eyelids: Yes eyelids normal Conjunctivae: conjunctivae normal Neck Neck: Yes normal visual inspection and Yes supple Resp Effort & Inspection: normal respiratory effort Auscultation: clear to auscultation bilaterally Cardio Jugular venous distension: no JVD Rate: regular rate Rhythm: regular rhythm Heart sounds: S1 normal heart sound present and S2 normal heart sound present GI Inspection: Yes normal to inspection Palpation (GI): Soft to palpation and nontender Auscultation: normal bowel sounds Skin General skin exam: no rashes or lesions noted Neuro General: patient oriented x3 and no focal motor deficits Extrem General: Yes full ROM Psych Appearance: grossly normal Assessment and Plan Assessment & Plan (1) Encounter for physical examination: Code(s): Z.00 - Encounter for general adult medical examination without abnormal findings Plan: Repeat in a year. Orders: Orders Complete Blood Count Auto Diff Today D64.9 - Anemia, unspecified IRON PROFILE Today D64.9 - Anemia, unspecified Lipid Panel Today Z00.00 - Encounter for general adult medical examination without abnormal findings Comprehensive [place]. Panel Fast Today Z00.00 - Encounter for general adult med ical examination without abnormal findings Vitamin B12 and Folate Today D64.9 - Anemia, unspecified, E53.8 - Deficiency of other specified B group vitamins Vitamin D 25-OH Total Today E55.9 - Vitamin D deficiency, unspecified Rast Allergen Today R21 - Rash and other nonspecific skin eruption Celiac Disease Panel Today D64.9 - Anemia, unspecified Referrals Dermatology Referral R21 - Rash and other nonspecific skin eruption Coding Level of Care Code Est Pt Prev Care 18-39y(54473) Diagnoses Encounter for physical examination Z00.00 Additional Codes VIKRAM-7 Assessment Billing - VIKRAM-7 Assessment Tool: VIKRAM-7 Assessment 85269 ([id number]) Time Spent (min) 32
== END 2023-07-20 09:21 | disposition home or self-care (01) ==
PROVIDERS: Visit Provider Internal Medicine
DX: Z00.00 Encounter for general adult medical examination without abnormal findings (principal)
CPT/HCPCS: 99395

== ENCOUNTER 2023-07-20 09:36 | Outpatient (REF) | payer OTHER, SELFPAY ==
[2023-07-20 10:11] LABS: MANUAL DIFF FLAG NO
[2023-07-20 10:38] LABS: Basophils Percent Auto 0.3 % (0-2); Eosinophils Absolute Auto 0.1 X10*3/uL (0.0-0.4); Eosinophils Percent Auto 1.8 % (0-4); Hematocrit 35.3 % (37.0-47.0); Hemoglobin 11.3 g/dl (12.0-16.0); Imm Gran Abs Auto 0.04 X10*3/uL (0.00-0.03); Imm Gran Pct Auto 1.2 % (0.0-0.4); Lymphocytes Absolute Auto 0.5 X10*3/uL (1.2-4.9); Lymphocytes Percent Auto 16.1 % (20-40); Mean Corpuscular Hemoglobin 26.5 pg (27.0-33.0); Mean Corpuscular Volume 82.9 fL (80.0-98.0); Mean Platelet Volume 11.1 fL (9.4-12.3); Monocytes Absolute Auto 0.3 X10*3/uL (0.1-1.2); Monocytes Percent Auto 9.6 % (2-11); Neutrophils Absolute Auto 2.4 x10*3/uL (2.0-8.3); Platelet Count 190 X10*3/uL (160-400); Red Blood Count 4.26 X10*6/uL (4.20-5.50); White Blood Count 3.4 X10*3/uL (4.8-10.8)
[2023-07-20 11:18] LABS: Alanine Aminotransferase 34 U/L (0-31); Albumin Level 3.9 g/dL (3.5-5.0); Alkaline Phosphatase 57 U/L (39-117); Anion Gap 6 (12-20); Aspartate Amino Transferase 28 U/L (5-31); Bilirubin Total 0.4 mg/dL (0.0-1.0); Blood Urea Nitrogen 18 mg/dL (9-16); Calcium 9.2 mg/dL (8.4-10.2); Carbon Dioxide 28 mmol/L (22-29); Chloride 107 mmol/L (96-108); Cholesterol 171 mg/dL (<200); Estimated Glomerular Filt Rate > 60; Glucose Fasting 83 mg/dL (60-99); HDL Cholesterol 46 mg/dL (>40); Iron 89 mcg/dL (30-160); LDL Cholesterol Calculated 114 mg/dL (<100); Percent Iron Saturation 34 % (15-50); Potassium 4.1 mmol/L (3.3-5.1); Sodium 137 mmol/L (135-145); Total Iron Binding Capacity 261 mcg/dL (228-428); Total Protein 8.7 g/dL (6.5-8.0); Triglycerides 56 mg/dL (<150); Unsaturated Iron Binding 172 ug/dL
[2023-07-20 11:38] LABS: Vitamin D 25-OH Total 31.1 ng/mL (>30)
[2023-07-20 18:24] LABS: Folate 5.5 ng/mL (> or = 4.0); Vitamin B12 431 pg/mL (200-900)
[2023-07-21 20:28] LABS: Immunoglobulin A 275 mg/dL (47-310); Transglutaminase IgA <1.0 U/mL
== END 2023-07-20 09:37 | disposition home or self-care (01) ==
LOC: HO.LAB 09:36
PROVIDERS: PCP Internal Medicine; Visit Provider Internal Medicine
DX: Z00.00 Encounter for general adult medical examination without abnormal findings (principal); Z13.6 Encounter for screening for cardiovascular disorders; D64.9 Anemia, unspecified; E53.8 Deficiency of other specified B group vitamins; R21 Rash and other nonspecific skin eruption; E55.9 Vitamin D deficiency, unspecified
CPT/HCPCS: 36415; 80053; 80061; 82306; 82607; 82746; 82784; 83540; 85025; 86364

== ENCOUNTER 2023-09-20 16:30 | Outpatient (AMB) | payer OTHER, SELFPAY ==
--- NOTE | 2023-09-20 16:42 | A.OFFPC_ITS ---
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 She said it is on and off. Has a dermatology appointment in February which I suggest to keep it. She had a positive test last week. No other acute complaint. [facility] Medical History (Updated 07/20/23 @ 10:11 by Flower Cardenas MD) Mild major depression Hypovitaminosis D Normocytic anemia Encounter for physical examination Surgical History Hx of laparoscopic gastric banding Hx of bilateral breast reduction surgery Family History Maternal Grandmother Breast cancer Father Prostate cancer Diabetes Paternal Grandfather Prostate cancer Mother Diabetes HTN (hypertension) Social History Housing: Apartment Alcohol intake: former Patient Tobacco Use Status: Never used Tobacco e-Cigarette/Vaping Use: Never Used Second Hand Smoke Exposure: No service: No Current occupational status: unemployed Sexual orientation: Straight/Heterosexual Gender identity: Female Cognitive needs: No Hearing needs: No Vision needs: Yes Female Reproductive History Menstrual Age of Menarche: 15 Questionnaire Thrive Questionnaire Date Thrive assessed: 07/20/23 VIKRAM-7 AMB Questionnaire VIKRAM-7 Date VIKRAM - 7 assessed: 07/20/23 Source: Developed by Drs. Daniel Pak, Liliam Potts, Aamir Cordoba and colleagues, with an educational ainsley from [employer]. Review of Systems Const All systems reviewed & are unremarkable except as noted in HPI and below Card Denies chest pain at rest, Denies chest pain with activity, Denies edema, Denies irregular heart rhythm, Denies claudication, Denies dyspnea, Denies dyspnea on exertion, Denies orthopnea, Denies paroxysmal nocturnal dyspnea and Denies slow heart rate Resp Denies cough, Denies dyspnea and Denies dyspnea on exertion Skin/Breast Reports rash Physical exam (Primary Care) Vital Signs: Last Vital Signs BP 108/62 09/20/23 16:43 BMI result Body Mass Index 28.5 Tobacco/Smoking Status: Tobacco use Status Tobacco use date assessed 07/20/23 09/20/23 16:52 Patient Tobacco Use Status Never used Tobacco 09/20/23 16:52 e-Cigarette/Vaping Use Never Used 09/20/23 16:52 Thrive Assessment: Date of Thrive Assessment Date Thrive assessed 07/20/23 09/20/23 16:52 Resp Effort & Inspection: normal respiratory effort Auscultation: clear to auscultation bilaterally Cardio Jugular venous distension: no JVD Rate: regular rate Rhythm: regular rhythm Heart sounds: S1 normal heart sound present and S2 normal heart sound present Skin Rashes: rashes noted Extrem General: Yes full ROM Assessment and Plan Assessment & Plan (1) Rash: Code(s): R21 - Rash and other nonspecific skin eruption Plan: Start hydrocortisone cream. Medications: New hydrocortisone 1% (Anti-Itch (hydrocortisone)) 1 appl topical TID PRN 28.4 grams 1RF skin irritation 2 weeks Coding Level of Care Code Est Pt Level 3 (81457) Complex EM visit Add On G2211 Diagnoses Rash R21 Time Spent (min) 18
[2023-09-20 16:43] VITALS: BP 108/62; BMI 28.5
== END 2023-09-20 17:20 | disposition home or self-care (01) ==
PROVIDERS: PCP Internal Medicine; Visit Provider Internal Medicine
DX: R21 Rash and other nonspecific skin eruption (principal)
CPT/HCPCS: 99213

== ENCOUNTER 2023-09-21 15:50 | Emergency (ER) | payer OTHER, SELFPAY ==
--- NOTE | ~2023-09-21 | US_ITS ---
EXAMINATION: US OBSTETRICAL ULTRASOUND CLINICAL INFORMATION: Left lower quadrant pain and spotting. 6 weeks . COMPARISON: None available. LMP: 08/08/2023. Gestational age by maternal dates is 6 weeks 2 days. Estimated date of delivery by maternal dates is 05/14/2024. TECHNIQUE: Transabdominal and transvaginal OB ultrasound. Transvaginal exam performed for better visualization of the uterus and ovaries. FINDINGS: There is a single intrauterine gestational sac with visible yolk sac, embryo/fetus, and cardiac activity. There is no significant subchorionic hemorrhage or hematoma. 8 x 6 x 6 mm hypoechoic lesion in the left side of the uterus probably representing a small fibroid. Small amount of fluid in the endocervical canal. HR: 107 beats per minute. CRL (crown rump length): 0.31 cm (6 weeks 0 days +/- 4 days). GRACE (estimated date of delivery): 05/16/2024 +/- 4 days. MATERNAL ADNEXA: The right maternal ovary measures 3.1 x 2.2 x 3 cm. 2 centimeter complex cyst probably representing a corpus luteum. 1.8 x 1.4 x 1.5 cm exophytic simple cyst. The left maternal ovary measures 2.8 x 1.4 x 1.7 cm. US/US OB pelvic and transvaginal All amount of fluid in the pelvis. IMPRESSION: 1. Single intrauterine gestation with ultrasound gestational age of 6 weeks 0 days +/- 4 days. 2. Estimated date of delivery is 05/16/2024 +/- 4 days. 3. No maternal adnexal mass. Small amount of fluid in the pelvis and endocervical canal.
[2023-09-21 16:00] VITALS: BP 110/64; PULSE 69; RESP 16; TEMP 36.3; O2SAT 97; BMI 28.5
--- NOTE | 2023-09-21 16:03 | ED_ITS ---
HPI - General Chief complaint: Vaginal Bleeding Stated complaint: 6 weeks preg, spotting w/ pain. hx of miscarriages Time Seen by Provider: 09/21/23 16:28 Source: patient Mode of arrival: ambulatory Limitations: no limitations History of Present Illness ED Provider: Dr. Marylou Gray HPI Narrative: Patient comes to the emergency room complaining vaginal spotting. Patient states that she has a at approximately 6 weeks of gestational age by last menstrual period. Patient states that yesterday she had some pinkish discharge, did not think much of it, today patient some blood in the toilet paper. Patient states that she immediately had anxiety and panic attack, and started having abdominal cramping. Patient states that she wants her anxiety decreased, the abdominal pain and cramping decreased as well. 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 ([employer]) cetirizine 10 mg tablet (All Day 10 mg PO DAILY PRN allergy 08/23/23 Allergy (cetirizine)) symptoms 90 days #90 tabs prednisone 10 mg tablet 10 mg PO DIRECTED 8 days #20 09/19/23 tabs hydrocortisone 1 % topical cream 1 appl topical TID PRN skin 09/20/23 (Anti-Itch (hydrocortisone)) irritation 2 weeks #28.4 grams Allergies Allergy/AdvReac Type Severity Reaction Status Date / Time lidocaine Allergy Swelling Verified 09/21/23 16:02 Review of Systems 2 Review of Systems: Constitutional : No Weight loss, No Fever, No Chills, No Night Sweats, No Fatigue, No Malaise ENT/Mouth : No Hearing loss, No Ear Pain, No Nasal Congestion, No Sinus Pain, No Hoarseness, No sore throat, No Rhinorrhea, No Swallowing Difficulty Eyes: No Eye Pain, No Swelling, No Redness, No Foreign Body, No Discharge, No Vision Changes Cardiovascular : No Chest Pain, No SOB, No Dyspnea on Exertion, No Orthopnea, No Edema, No Palpitations Respiratory : No Cough, No Sputum, No Wheezing, No Smoke Exposure, No Dyspnea Gastrointestinal : No Nausea, No Vomiting, No Diarrhea, No Constipation, complaining of abdominal cramping that has resolved, no hematochezia or melena Genitourinary : Complaining of vaginal spotting/bleeding, No Dysuria, No Urinary Frequency, No Hematuria, No Urinary Incontinence, No Urgency, No Flank Pain, No Urinary Flow Changes, No Hesitancy Musculoskeletal : No joint pain, No Myalgias, No Joint Swelling Skin : No Skin Lesions, No rash Neuro : No Weakness, No Numbness, No Paresthesias, No Loss of Consciousness, No Dizziness, No Headache Psych : No Anxiety/Panic, No Depression, No SI/HI/AH/VH, No Social Issues, Heme/Lymph: No Bruising, No Bleeding,No Lymphadenopathy Endocrine : No Polyuria, No Polydipsia, No Temperature Intolerance PMFSH Past Medical History Medical History Mild major depression Hypovitaminosis D Normocytic anemia Encounter for physical examination Surgical History Hx of laparoscopic gastric banding Hx of bilateral breast reduction surgery Family History Family History Maternal Grandmother Breast cancer Father Prostate cancer Diabetes Paternal Grandfather Prostate cancer Mother Diabetes HTN (hypertension) Social History Social History Housing: Apartment Alcohol intake: former Patient Tobacco Use Status: Never used Tobacco e-Cigarette/Vaping Use: Never Used Second Hand Smoke Exposure: No Advance Directives: No Advance Directives Information Provided: No service: No Current occupational status: unemployed Sexual orientation: Straight/Heterosexual Gender identity: Female Cognitive needs: No Hearing needs: No Vision needs: Yes Physical Exam 2 Vital Signs: Vital Signs: Last Vital Signs Temp 97.3 F 09/21/23 16:00 Pulse 65 09/21/23 18:28 Resp 16 09/21/23 18:28 BP 99/55 L 09/21/23 18:28 Pulse Ox 100 09/21/23 18:28 O2 Del Method Room Air 09/21/23 18:28 BMI result Body Mass Index 28.5 Const: Other: Appearance: Alert. Oriented X3. No acute distress. Eyes: Pupils equal, round and reactive to light. ENT: Pharynx normal. Neck: Normal inspection. Neck supple. No lymph nodes noted. No crepitus CVS: Normal heart rate and rhythm. Pulses normal. Normal S1 and S2 Respiratory: No respiratory distress. Breath sounds normal. No Wheezing. No rales Abdomen: Soft and nontender. No rigidity. No distention. : There is a moderate amount of blood in the vaginal vault, saturated 3 large cotton swabs. There is a bit of tissue protruding through the cervical os , beginning to open Skin: Skin warm and dry. Normal skin color. Normal skin turgor. Extremities: No lower extremity edema. No Lacerations. No Rash Neuro: Oriented X 3. No motor deficit. No sensory deficit. Moving all extremities. No slurred speech. CN 2 through 12 grossly intact Psych: calm, cooperative, normal affect Course Course Course Narrative: This is a Rapid Medical Exam performed in triage by Iveth Olivas PA-C. Full HPI, ROS and PE to be performed by primary ED provider. 33 year-old w/ PMHx with 2 prior miscarriages at about 6 weeks gestation, LMP 08/08/23 presenting to the ED c/o vaginal spotting x2 days w/pelvic pain x today. denies clots. did see Quality Lab Technician to confirm with urine. denies labs or imaging yet PE: On exam appears very uncomfortable +LLQ/suprapubic ttp. no guarding Plan: Labs, UA, OB US Medical Decision Making Medical Decision Making MDM Narrative: -radiology report shows a single intrauterine gestation with a gestational age of 6 weeks 0 days -unfortunately, patient does have a fair amount of bleeding at this time , 3 large cotton swabs soaked with blood, small amount of tissue protruding through the cervical os, which is beginning to open -I discussed with the patient and her that this is considered a threatened and there is a probability that this will result in a miscarriage. As of this time, per ultrasound, the embryo/fetus has cardiac activity without subchorionic hemorrhage I discussed the patient with Dr. Thomas, patient will be given instructions vaginal bleeding/cramping when to return to the emergency room. 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 -patient states that they will not be able to follow-up with her OBGYN until next week. Patient having a high level of anxiety (no panic attack) as this would be the 3rd time having a miscarriage. -so to patient's high level of anxiety, patient was given the option to follow- up in 48 hours for an hCG check. -discussed with the patient that if she has any worsening symptoms, heavy vaginal bleeding, abdominal cramping, pain pain, patient needs to return to the emergency room at any time, patient agreeable. -instructed the patient that she needs strict pelvic rest -patient's H&H are stable, no drop in hemoglobin or hematocrit, vitals stable Differential Diagnosis Differential Diagnoses: The differential diagnosis associated with the presentation includes (Threatened , missed ) Lab Data MDM Lab Attestation statement: I reviewed the patient's lab results. 09/21/23 17:16 09/21/23 17:16 Labs: Lab Results 09/21/23 Range/Units 17:16 WBC 5.0 (4.8-10.8) X10*3/uL RBC 4.29 (4.20-5.50) X10*6/uL Hgb 11.2 L (12.0-16.0) g/dl Hct 34.6 L (37.0-47.0) % MCV 80.7 (80.0-98.0) fL MCH 26.1 L (27.0-33.0) pg MCHC 32.4 (31.0-35.0) g/dl RDW 12.9 (11.0-16.0) % Plt Count 192 (160-400) X10*3/uL MPV 11.3 (9.4-12.3) fL Immature Gran % (Auto) 0.8 H (0.0-0.4) % Neut % (Auto) 71.6 (45-73) % Lymph % (Auto) 18.5 L (20-40) % Reagan % (Auto) 7.5 (2-11) % Eos % (Auto) 1.2 (0-4) % Baso % (Auto) 0.4 (0-2) % Lymph # (Auto) 0.9 L (1.2-4.9) X10*3/uL Reagan # (Auto) 0.4 (0.1-1.2) X10*3/uL Eos # (Auto) 0.1 (0.0-0.4) X10*3/uL Baso # (Auto) 0.0 (0.0-0.2) X10*3/uL Abs Immat Gran (auto) 0.04 H (0.00-0.03) X10*3/uL Absolute Neuts (auto) 3.6 (2.0-8.3) x10*3/uL Absolute Nucleated RBC 0.000 (0.0-0.012) X10*3/uL Nucleated RBC % (auto) 0.0 (0.0-0.2) /100WBC PT 11.8 (11.1-13.3) SEC INR 1.0 (0.9-1.1) Sodium 137 (135-145) mmol/L Potassium 4.2 (3.3-5.1) mmol/L Chloride 107 (96-108) mmol/L Carbon Dioxide 22 (22-29) mmol/L Anion Gap 12 (12-20) BUN 10 (9-16) mg/dL Creatinine 0.64 (0.5-1.4) mg/dL Estim Creat Clear Calc 121.9 Estimated GFR > 60 Random Glucose 81 (60-115) mg/dL Calcium 9.3 (8.4-10.2) mg/dL Total Bilirubin 0.4 (0.0-1.0) mg/dL Direct Bilirubin 0.1 (0.0-0.5) mg/dL AST 28 (5-31) U/L ALT 20 (0-31) U/L Alkaline Phosphatase 42 (39-117) U/L Total Protein 8.7 H (6.5-8.0) g/dL Albumin 3.8 (3.5-5.0) g/dL Lipase 18 (8-78) U/L Beta HCG, Quant 4581 mIU/mL Urine Color Yellow Urine Appearance Clear Urine pH 6.5 (5.0-9.0) Ur Specific [place] <= 1.005 (1.005-1.025) Urine Protein Negative (Neg-Trace) mg/dL Urine Glucose (UA) Negative (Negative) mg/dL Urine Ketones Negative (Negative) mg/dL Urine Blood Moderate (2+) H (Negative) Urine Nitrite Negative (Negative) Ur Leukocyte Esterase Small (1+) H (Negative) Urine RBC 3-5 H (0-2) /HPF Urine WBC 0-5 (0-5) /HPF Ur Squamous Epith Cells 3-5 (0-2) /HPF Urine Bacteria None Seen (None Seen) Hyaline Casts 0-2 (0-2) /LPF Urine Test POSITIVE H (NEGATIVE) Independent Interpretation I performed an independent interpretation of an: Ultrasound Radiology Impression Discussion of test interpretation with radiology: I have reviewed the radiologist's reading. Radiologist Impression: FINDINGS: There is a single intrauterine gestational sac with visible yolk sac, embryo/fetus, and cardiac activity. There is no significant subchorionic hemorrhage or hematoma. 8 x 6 x 6 mm hypoechoic lesion in the left side of the uterus probably representing a small fibroid. Small amount of fluid in the endocervical canal. HR: 107 beats per minute. CRL (crown rump length): 0.31 cm (6 weeks 0 days +/- 4 days). GRACE (estimated date of delivery): 05/16/2024 +/- 4 days. MATERNAL ADNEXA: The right maternal ovary measures 3.1 x 2.2 x 3 cm. 2 centimeter complex cyst probably representing a corpus luteum. 1.8 x 1.4 x 1.5 cm exophytic simple cyst. The left maternal ovary measures 2.8 x 1.4 x 1.7 cm. US/US OB pelvic and transvaginal All amount of fluid in the pelvis. IMPRESSION: 1. Single intrauterine gestation with ultrasound gestational age of 6 weeks 0 days +/- 4 days. 2. Estimated date of delivery is 05/16/2024 +/- 4 days. 3. No maternal adnexal mass. Small amount of fluid in the pelvis and endocervical canal. Independent Historian Clinical information obtained from an independent historian. History obtained from or confirmed by: Spouse Critical Care Time Critical Care Time Critical Care Time: Yes Total Critical Care Time: 30 Attestation: I have personally provided critical care time. Time includes review of lab data, radiology results, discussion with consultants, and monitoring for potential decompensation. Intervention performed as documented. Discharge Plan Discharge Clinical Impression: Threatened Patient Disposition: Home, Self-Care Instructions: Threatened Miscarriage (ED) Additional Instructions: Please come back in approximately 48 hours, September 22 around 18:00 for an HCG check. If you have any significant abdominal pain, bleeding at any time, please return immediately to the emergency room. Please follow-up with your primary care physician tomorrow. If you have any worsening or new symptoms, please return to the emergency room or call 911 Prescriptions: No Action Wegovy 0.25 mg/0.5 mL pen injector 0.25 mg subcut QWEEK 28 Days Qty: 2 0RF Rx Instructions: administer weeks 1 through 4 of therapy cetirizine [All Day Allergy (cetirizine)] 10 mg tablet 10 mg PO DAILY PRN (Reason: allergy symptoms) 90 Days Qty: 90 1RF prednisone 10 mg tablet 10 mg PO DIRECTED 8 Days Qty: 20 0RF Rx Instructions: Take 4 tabs the first 2 days, then 3 tabs the next 2 days, then 2 tabs the next 2 days, then 1 tab the next 2 days hydrocortisone [Anti-Itch (HC)] 1 % cream 1 appl topical TID PRN (Reason: skin irritation) 14 Days Qty: 28.4 1RF Print Language: Mohawk
[2023-09-21 17:23] LABS: MANUAL DIFF FLAG NO
[2023-09-21 17:29] LABS: Appearance Urine Clear; Color Urine Yellow; Glucose Urine UA Negative (Negative); Leukocyte Esterase Urine Small (1+) (Negative); Nitrite Urine Negative (Negative); PH 6.5 (5.0-9.0); Specific Gravity - Urine <= 1.005 (1.005-1.025); UMIC TRIGGER UACC YES; Urine Blood Moderate (2+) (Negative); Urine Ketones Negative (Negative); Urine Protein Negative (Neg-Trace)
[2023-09-21 17:31] LABS: Basophils Percent Auto 0.4 % (0-2); Eosinophils Absolute Auto 0.1 X10*3/uL (0.0-0.4); Eosinophils Percent Auto 1.2 % (0-4); Hematocrit 34.6 % (37.0-47.0); Hemoglobin 11.2 g/dl (12.0-16.0); Imm Gran Abs Auto 0.04 X10*3/uL (0.00-0.03); Imm Gran Pct Auto 0.8 % (0.0-0.4); Lymphocytes Absolute Auto 0.9 X10*3/uL (1.2-4.9); Lymphocytes Percent Auto 18.5 % (20-40); Mean Corpuscular HGB Conc 32.4 g/dl (31.0-35.0); Mean Corpuscular Hemoglobin 26.1 pg (27.0-33.0); Mean Corpuscular Volume 80.7 fL (80.0-98.0); Mean Platelet Volume 11.3 fL (9.4-12.3); Monocytes Absolute Auto 0.4 X10*3/uL (0.1-1.2); Monocytes Percent Auto 7.5 % (2-11); Neutrophils Absolute Auto 3.6 x10*3/uL (2.0-8.3); Neutrophils Percent Auto 71.6 % (45-73); Platelet Count 192 X10*3/uL (160-400); Prothrombin Time 11.8 SEC (11.1-13.3); Red Blood Count 4.29 X10*6/uL (4.20-5.50); Red Cell Distribution Width 12.9 % (11.0-16.0); UPreg QC Valid YES; Urine Pregnancy POSITIVE (NEGATIVE)
[2023-09-21 17:39] LABS: Bacteria Urine None Seen (None Seen); Hyaline Casts Urine 0-2 /LPF (0-2); UACC Culture Trigger YES; WBC Urine 0-5 /HPF (0-5)
[2023-09-21 17:46] LABS: HCG Quantitative 4581 mIU/mL
[2023-09-21 17:50] LABS: Alanine Aminotransferase 20 U/L (0-31); Albumin Level 3.8 g/dL (3.5-5.0); Alkaline Phosphatase 42 U/L (39-117); Anion Gap 12 (12-20); Aspartate Amino Transferase 28 U/L (5-31); Bilirubin Direct 0.1 mg/dL (0.0-0.5); Bilirubin Total 0.4 mg/dL (0.0-1.0); Blood Urea Nitrogen 10 mg/dL (9-16); Calcium 9.3 mg/dL (8.4-10.2); Carbon Dioxide 22 mmol/L (22-29); Chloride 107 mmol/L (96-108); Creatinine Clr Calc Pharmacy 121.9; Estimated Glomerular Filt Rate > 60; Glucose Random 81 mg/dL (60-115); Lipase 18 U/L (8-78); Potassium 4.2 mmol/L (3.3-5.1); Sodium 137 mmol/L (135-145); Total Protein 8.7 g/dL (6.5-8.0)
[2023-09-21 18:28] VITALS: BP 99/55; PULSE 65; RESP 16; O2SAT 100
--- NOTE | 2023-09-21 19:15 | PM.GYNCN ---
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 The patient has history of 2 SABs Blood type O positive, hCG 4581 cc:: CC: OB PMFSH Past Medical History Medical History Mild major depression Hypovitaminosis D Normocytic anemia Encounter for physical examination Family History Family History Maternal Grandmother Breast cancer Father Prostate cancer Diabetes Paternal Grandfather Prostate cancer Mother Diabetes HTN (hypertension) Surgical History Surgical History Hx of laparoscopic gastric banding Hx of bilateral breast reduction surgery Social History Social History Housing: Apartment Alcohol intake: former Patient Tobacco Use Status: Never used Tobacco e-Cigarette/Vaping Use: Never Used Second Hand Smoke Exposure: No Advance Directives: No Advance Directives Information Provided: No service: No Current occupational status: unemployed Sexual orientation: Straight/Heterosexual Gender identity: Female Cognitive needs: No Hearing needs: No Vision needs: Yes Meds Allergies Allergy/AdvReac Type Severity Reaction Status Date / Time lidocaine Allergy Swelling Verified 09/21/23 16:02 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 Gray as the following: Abdomen: Soft and nontender. No rigidity. No distention. : There is a moderate amount of blood in the vaginal vault, saturated 3 large cotton swabs. There is a bit of tissue protruding through the cervical os , beginning to open DRY WALL APPLICATOR - Results Labs 09/21/23 17:16 09/21/23 17:16 Labs: Short CBC 09/21/23 Range/Units 17:16 WBC 5.0 (4.8-10.8) X10*3/uL Hgb 11.2 L (12.0-16.0) g/dl Hct 34.6 L (37.0-47.0) % Plt Count 192 (160-400) X10*3/uL BMP 09/21/23 17:16 Sodium 137 Potassium 4.2 Chloride 107 Carbon Dioxide 22 BUN 10 Creatinine 0.64 Calcium 9.3 Liver Function 09/21/23 Range/Units 17:16 Total Bilirubin 0.4 (0.0-1.0) mg/dL Direct Bilirubin 0.1 (0.0-0.5) mg/dL AST 28 (5-31) U/L ALT 20 (0-31) U/L Alkaline Phosphatase 42 (39-117) U/L Albumin 3.8 (3.5-5.0) g/dL Urine 09/21/23 Range/Units 17:16 Urine Color Yellow Urine Appearance Clear Urine pH 6.5 (5.0-9.0) Ur Specific [place] <= 1.005 (1.005-1.025) Urine Protein Negative (Neg-Trace) mg/dL Urine Glucose (UA) Negative (Negative) mg/dL Urine Test POSITIVE H (NEGATIVE) Imaging US - abdomen: Radiologist's impression: ITS Impressions Pelvic/Transvag US 09/21/23 17:56 All amount of fluid in the pelvis. IMPRESSION: 1. Single intrauterine gestation with ultrasound gestational age of 6 weeks 0 days +/- 4 days. 2. Estimated date of delivery is 05/16/2024 +/- 4 days. 3. No maternal adnexal mass. Small amount of fluid in the pelvis and endocervical canal. Assessment and Plan (1) Threatened : Status: Acute Plan Recommended to Dr. Gray the following: GC/CT be collected. SAB warnings to be given to the patient, she is to come back to the emergency in case of pelvic cramping and or bleeding otherwise have a close outpatient follow-up with OBGYN within 2 days. vitamin 1 tablet p.o. q.d. I spent a total of 20 minutes reviewing the chart, communicating to the emergency room provider and documenting in the medical record
[2023-09-21 20:08] VITALS: BP 99/55; PULSE 65; RESP 16; TEMP 36.8; O2SAT 100
== END 2023-09-21 20:10 | disposition home or self-care (01) ==
PROVIDERS: Physician Assistant; Emergency Provider Emergency Medicine; PCP Internal Medicine
DX: O20.0 Threatened abortion (principal); O26.851 Spotting complicating pregnancy, first trimester; Z3A.01 Less than 8 weeks gestation of pregnancy; O26.891 Other specified pregnancy related conditions, first trimester; F41.9 Anxiety disorder, unspecified; R10.2 Pelvic and perineal pain
CPT/HCPCS: 36415; 76801; 76817; 80048; 80076; 81001; 81025; 83690; 84702; 85025; 85610; 87086; 99283; 99284

== ENCOUNTER → 2023-09-21 18:11 | Outpatient (BNV) | payer OTHER, SELFPAY | PROVIDERS: Emergency Provider Emergency Medicine; PCP Internal Medicine; Visit Provider Obstetrics & Gynecology | DX: O20.0 Threatened abortion (principal) | CPT/HCPCS: 99283 ==

== ENCOUNTER 2023-09-23 18:08 | Emergency (ER) | payer OTHER, SELFPAY ==
[2023-09-23 18:16] VITALS: BP 127/71; PULSE 72; RESP 15; TEMP 36.6; O2SAT 98; BMI 28.3
--- NOTE | 2023-09-23 18:17 | ED.GENADULT ---
HPI - General Adult General Chief complaint: Recheck/Abnormal Lab/Rx Stated complaint: recheck labs Time Seen by Provider: 09/23/23 18:43 Source: patient and referral nurse Mode of arrival: ambulatory Limitations: language barrier History of Present Illness ED Provider: erica HPI narrative: Patient is a 33-year-old female with history of 2 SABs between 6-8 weeks gestation who was seen in this ED on 09/20 for threatened , advised to return to the ED for recheck of HCG level. Denies any ongoing vaginal bleeding or spotting. Does report some constipation today but denies any other abdominal pain or cramping and was able to have a bowel movement. LMP 08/08/23. U/S on 09/20 showed single IUP age 6 weeks 0 days gestation. complaint: recheck of labs Onset (ago): day(s) Associated symptoms: denies other symptoms Treatments prior to arrival: none Related Data Previous Rx's ?Medication ?Instructions ?Recorded semaglutide (weight loss) 0.25 0.25 mg (0.5 mL) subcut QWEEK 4 08/16/23 mg/0.5 mL subcutaneous pen weeks #2 mL injector (Wegovy) cetirizine 10 mg tablet (All Day 10 mg PO DAILY PRN allergy 08/23/23 Allergy (cetirizine)) symptoms 90 days #90 tabs prednisone 10 mg tablet 10 mg PO DIRECTED 8 days #20 09/19/23 tabs hydrocortisone 1 % topical cream 1 appl topical TID PRN skin 09/20/23 (Anti-Itch (hydrocortisone)) irritation 2 weeks #28.4 grams Allergies Allergy/AdvReac Type Severity Reaction Status Date / Time lidocaine Allergy Swelling Verified 09/23/23 18:18 Review of Systems Review of Systems: As per HPI. Yes all other systems are reviewed and are negative Constitutional: Constitutional: Reports as per HPI PMFSH Past Medical History Medical History Mild major depression Hypovitaminosis D Normocytic anemia Encounter for physical examination Surgical History Hx of laparoscopic gastric banding Hx of bilateral breast reduction surgery Family History Family History Maternal Grandmother Breast cancer Father Prostate cancer Diabetes Paternal Grandfather Prostate cancer Mother Diabetes HTN (hypertension) Social History Social History Housing: Apartment Alcohol intake: never Patient Tobacco Use Status: Never used Tobacco Smoked in Last 30 Days: No e-Cigarette/Vaping Use: Never Used Second Hand Smoke Exposure: No Use of substances other than those prescribed or required for medical reasons: No Advance Directives: No Advance Directives Information Provided: No Do you have a plan to hurt others: No Plan Patient : Yes service: No Current occupational status: unemployed Sexual orientation: Straight/Heterosexual Gender identity: Female Cognitive needs: No Hearing needs: No Vision needs: Yes Physical Exam ED Vital Signs: Vital Signs - 24 hr 09/23/23 18:16 Temperature 98 F Pulse Rate 72 Respiratory Rate 15 Blood Pressure 127/71 Pulse Oximetry 98 Oxygen Delivery Method Room Air BMI result Body Mass Index 28.3 Vital signs have been reviewed and appear to be correct. Blood pressure normal. Heart rate normal. Respiratory rate normal. Temperature normal. Oxygen saturation normal. Const General: cooperative, healthy appearing and no acute distress Orientation/consciousness: oriented to person, oriented to place, oriented to time and patient oriented x3 Limitations: no limitations HENMT Head: Yes normocephalic and Yes atraumatic Ears: external ears normal General nose exam: Normal external nose present Face and sinus: Yes face symmetric Mouth: oropharynx normal and moist mucous membranes Throat: Yes uvula midline Eyes Pupils: Equal, round and reactive pupils present Neck Neck: Yes normal visual inspection and Yes supple Resp Effort & Inspection: normal respiratory effort and able to speak in complete sentences Auscultation: clear to auscultation bilaterally Cardio Rate: regular rate Rhythm: regular rhythm Heart sounds: S1 normal heart sound present and S2 normal heart sound present GI Palpation (GI): Soft to palpation and nontender Auscultation: normoactive bowel sounds General: Yes no CVA tenderness Back/Spine/Pelvis Back: no CVA tenderness Skin General skin exam: elasticity normal and turgor normal Neuro General: oriented to person, oriented to place, oriented to time, patient oriented x3, moves all extremities, no focal motor deficits and CN's II-XI intact bilaterally Cranial nerves: Yes Equal, round and reactive pupils present Cognition (Neuro): normal cognition Extrem General: Yes full ROM, Yes no pedal edema and Yes no calf tenderness Psych Mental Status: mental status grossly normal Affect: normal affect Thought process: Normal thought process present Medical Decision Making Medical Decision Making [facility] Narrative: Patient is a 33-year-old female with history of 2 SABs between 6-8 weeks gestation who was seen in this ED on 09/20 for threatened , advised to return to the ED for recheck of HCG level. On exam patient is awake, A+Ox3, VS WNL, afebrile, normal neurological exam without focal deficits, physical exam findings as above. Given reported symptoms and physical exam findings, initial differential includes threatened , IUP. Labs notable for hcg of 4873, was 4581 on 09/20. Patient states she recently made an appointment with a new [employer]NA[employer] in [place], is unsure of her name, but the appointment is not until 10/05. Case discussed with Dr. Thomas who saw patient on 09/20. He will see patient in his office in a few days for follow up, feels patient is stable for discharge home with SAB warnings, to return with any new bleeding, cramping/pain. Plan discussed with patient who is agreeable to this. Return precautions discussed at length at bedside. Patient verbalized understanding of and agreement with plan. Differential Diagnosis Differential Diagnoses: The differential diagnosis associated with the presentation includes As per [facility] Consult Healthcare Provider Management of the patient was discussed with: [employer] () Lab Data [facility] Lab Attestation statement: I reviewed the patient's lab results. As per [facility] Labs: Lab Results 09/23/23 Range/Units 18:23 Beta HCG, Quant 4873 mIU/mL External Record Review External record reviewed: Inpatient record, Office record and Outpatient record Critical Care Time Critical Care Time Critical Care Time: Yes Total Critical Care Time: 31 Attestation: I have personally provided critical care time exclusive of time spent on separately billable procedures. Time includes review of lab data, radiology results, discussion with consultants, and monitoring for potential decompensation. Intervention performed as documented. Discharge Plan Discharge Clinical Impression: Threatened Patient Disposition: Home, Self-Care Instructions: Threatened Miscarriage (ED) Additional Instructions: Your HCG level today was 4873. Dr. Thomas wants you to follow up in his office this week. Call his office first thing Monday morning to schedule an appointment. Return to the emergency department sooner if you experience vaginal bleeding, cramping, abdominal pain, fever, or any other concerning symptoms. Prescriptions: No Action Wegovy 0.25 mg/0.5 mL pen injector 0.25 mg subcut QWEEK 28 Days Qty: 2 0RF Rx Instructions: administer weeks 1 through 4 of therapy cetirizine [All Day Allergy (cetirizine)] 10 mg tablet 10 mg PO DAILY PRN (Reason: allergy symptoms) 90 Days Qty: 90 1RF prednisone 10 mg tablet 10 mg PO DIRECTED 8 Days Qty: 20 0RF Rx Instructions: Take 4 tabs the first 2 days, then 3 tabs the next 2 days, then 2 tabs the next 2 days, then 1 tab the next 2 days hydrocortisone [Anti-Itch (HC)] 1 % cream 1 appl topical TID PRN (Reason: skin irritation) 14 Days Qty: 28.4 1RF Referrals: Finesse Thomas MD [Physician] - Print Language: Armenian
[2023-09-23 18:51] LABS: HCG Quantitative 4873 mIU/mL
[2023-09-23 20:14] VITALS: BP 128/74; PULSE 70; RESP 19; TEMP 36.7; O2SAT 99
--- NOTE | 2023-09-23 20:16 | PM.GYNCN ---
LOGISTICS MANAGER - CN: HPI Data of Consult Consult date: 09/23/23 Primary Care Provider: Flower Cardenas MD Consult Narrative Narrative: I was consulted on Patricia Gutierrez is a 33 year old female at 6 weeks and 2 days of gestation by early ultrasound on 09/02 presented emergency room for recheck of HCG level. Denies any ongoing vaginal bleeding or spotting, no pelvic cramping LMP 08/08/23. U/S on 09/20 showed the following: There is a single intrauterine gestational sac with visible yolk sac, embryo/fetus, and cardiac activity. There is no significant subchorionic hemorrhage or hematoma. 8 x 6 x 6 mm hypoechoic lesion in the left side of the uterus probably representing a small fibroid. Small amount of fluid in the endocervical canal. HR: 107 beats per minute. CRL (crown rump length): 0.31 cm (6 weeks 0 days +/- 4 days). GRACE (estimated date of delivery): 05/16/2024 +/- 4 days. MATERNAL ADNEXA: The right maternal ovary measures 3.1 x 2.2 x 3 cm. 2 centimeter complex cyst probably representing a corpus luteum. 1.8 x 1.4 x 1.5 cm exophytic simple cyst. The left maternal ovary measures 2.8 x 1.4 x 1.7 cm. Blood type O positive HCG on 09/20 was 4581, repeated today was 4873 cc:: CC: OB REPLACED BY [facility] Past Medical History Medical History Mild major depression Hypovitaminosis D Normocytic anemia Encounter for physical examination Family History Family History Maternal Grandmother Breast cancer Father Prostate cancer Diabetes Paternal Grandfather Prostate cancer Mother Diabetes HTN (hypertension) Surgical History Surgical History Hx of laparoscopic gastric banding Hx of bilateral breast reduction surgery Social History Social History Housing: Apartment Alcohol intake: never Patient Tobacco Use Status: Never used Tobacco Smoked in Last 30 Days: No e-Cigarette/Vaping Use: Never Used Second Hand Smoke Exposure: No Use of substances other than those prescribed or required for medical reasons: No Advance Directives: No Advance Directives Information Provided: No Do you have a plan to hurt others: No Plan Patient : Yes service: No Current occupational status: unemployed Sexual orientation: Straight/Heterosexual Gender identity: Female Cognitive needs: No Hearing needs: No Vision needs: Yes Meds Allergies Allergy/AdvReac Type Severity Reaction Status Date / Time lidocaine Allergy Swelling Verified 09/23/23 18:18 LOGISTICS MANAGER Physical Exam Vitals Vital signs: Temp Pulse Resp BP Pulse Ox O2 Del Method 98.1 F 70 19 128/74 99 Room Air 09/23/23 20:14 09/23/23 20:14 09/23/23 20:14 09/23/23 20:14 09/23/23 20:14 09/23/23 20:14 BMI result Body Mass Index 28.3 Additional Comments: Abdominal exam reported by OZ Zacarias in the emergency room as soft nontender Assessment and Plan (1) Threatened : Status: Acute Plan Recommended to OZ Zacarias the following: SAB warnings to be given to patient, she is to come back to the emergency room in case of pelvic cramping and or bleeding otherwise follow-up with her OBGYN early next week. vitamin tablet p.o. q.d. I spent a total of 20 minutes reviewing the chart, documenting in the medical record and communicating with the emergency room provider
[2023-09-23 20:24] VITALS: BP 128/74; PULSE 70; RESP 19; TEMP 36.7; O2SAT 99
== END 2023-09-23 20:26 | disposition home or self-care (01) ==
PROVIDERS: Registered Nurse Emergency; Emergency Provider Student in an Organized Health Care Education/Training Program; PCP Internal Medicine
DX: O20.0 Threatened abortion (principal); Z3A.01 Less than 8 weeks gestation of pregnancy
CPT/HCPCS: 36415; 84702; 99284

== ENCOUNTER → 2023-09-23 18:22 | Outpatient (BNV) | payer OTHER, SELFPAY | PROVIDERS: Emergency Provider Student in an Organized Health Care Education/Training Program; PCP Internal Medicine; Visit Provider Obstetrics & Gynecology | DX: O20.0 Threatened abortion (principal) | CPT/HCPCS: 99283 ==

== ENCOUNTER 2024-04-04 16:36 | Outpatient (REF) | payer OTHER, SELFPAY ==
[2024-04-04 18:01] LABS: HCG Quantitative 1080 mIU/mL
== END 2024-04-04 16:37 | disposition home or self-care (01) ==
LOC: HO.LAB 16:36
PROVIDERS: PCP Internal Medicine; Visit Provider Internal Medicine
DX: Z34.90 Encounter for supervision of normal pregnancy, unspecified, unspecified trimester (principal)
CPT/HCPCS: 36415; 84702

== ENCOUNTER 2024-08-05 09:03 | Outpatient (REF) | payer OTHER, SELFPAY ==
[2024-08-05 09:33] LABS: MANUAL DIFF FLAG NO
[2024-08-05 10:27] LABS: Basophils Percent Auto 0.5 % (0-2); Eosinophils Absolute Auto 0.1 X10*3/uL (0.0-0.4); Eosinophils Percent Auto 1.5 % (0-4); Imm Gran Abs Auto 0.16 X10*3/uL (0.00-0.03); Imm Gran Pct Auto 2.7 % (0.0-0.4); Lymphocytes Percent Auto 16.1 % (20-40); Mean Corpuscular HGB Conc 31.2 g/dl (31.0-35.0); Mean Corpuscular Hemoglobin 21.8 pg (27.0-33.0); Mean Corpuscular Volume 70.1 fL (80.0-98.0); Mean Platelet Volume 11.4 fL (9.4-12.3); Monocytes Absolute Auto 0.6 X10*3/uL (0.1-1.2); Monocytes Percent Auto 10.6 % (2-11); Neutrophils Absolute Auto 4.1 x10*3/uL (2.0-8.3); Neutrophils Percent Auto 68.6 % (45-73); Platelet Count 313 X10*3/uL (160-400); Red Blood Count 3.94 X10*6/uL (4.20-5.50); Red Cell Distribution Width 16.9 % (11.0-16.0)
[2024-08-05 10:28] LABS: Hematocrit 27.6 % (37.0-47.0); Hemoglobin 8.6 g/dl (12.0-16.0)
[2024-08-05 10:47] LABS: Appearance Urine Clear; Color Urine Yellow; Glucose Urine UA Negative (Negative); Leukocyte Esterase Urine Negative (Negative); Nitrite Urine Negative (Negative); Urine Blood Negative (Negative); Urine Ketones Negative (Negative); Urine Protein Negative (Neg-Trace)
[2024-08-05 11:18] LABS: HBS Num1 0.97 mIU/mL (0-7.99); HBsAGNum1 0.26 S/CO (0.00-0.99); HIV AB/AG Nonreactive (Nonreactive); HIV Num 1 0.07 S/CO (0.00-0.99); Hepatitis B Core Antibody Nonreactive (Nonreactive); Hepatitis B Surface Antigen Negative (Negative); ~Hepatitis B Surface Antibody NONREACTIVE (Nonreactive)
[2024-08-05 11:22] LABS: Syphilis Screen Nonreactive (Nonreactive)
[2024-08-05 11:25] LABS: Erythrocyte Sedimentation Rate 70 MM/HR (0-20)
[2024-08-05 11:26] LABS: Alanine Aminotransferase 14 U/L (0-31); Albumin Level 3.7 g/dL (3.5-5.0); Alkaline Phosphatase 57 U/L (39-117); Anion Gap 11 (12-20); Aspartate Amino Transferase 25 U/L (5-31); Bilirubin Total 0.3 mg/dL (0.0-1.0); Blood Urea Nitrogen 16 mg/dL (9-16); Calcium 8.7 mg/dL (8.4-10.2); Carbon Dioxide 23 mmol/L (22-29); Chloride 107 mmol/L (96-108); Estimated Glomerular Filt Rate > 60; Glucose Fasting 84 mg/dL (60-99); Iron 20 mcg/dL (30-160); Percent Iron Saturation 6 % (15-50); Potassium 3.8 mmol/L (3.3-5.1); Sodium 137 mmol/L (135-145); Total Iron Binding Capacity 348 mcg/dL (228-428); Total Protein 8.1 g/dL (6.5-8.0); Unsaturated Iron Binding 328 ug/dL; Vitamin D 25-OH Total 26.9 ng/mL (>30)
[2024-08-05 11:34] LABS: Folate 11.7 ng/mL (> or = 4.0); Vitamin B12 422 pg/mL (200-900)
[2024-08-06 13:54] LABS: Anti DNA DS Antibody 2 IU/mL
[2024-08-06 22:38] LABS: Cardiolipin IgG Ab <2.0 GPL-U/mL; Cardiolipin IgM Ab <2.0 MPL-U/mL
[2024-08-09 23:14] LABS: Beta-2 Glycoprotein IgA <2.0 U/mL (<20.0); Beta-2 Glycoprotein IgG <2.0 U/mL (<20.0); Beta-2 Glycoprotein IgM <2.0 U/mL (<20.0)
[2024-08-10 08:03] LABS: PTT (LAC) Screen 26 sec (<=40)
== END 2024-08-05 09:04 | disposition home or self-care (01) ==
LOC: HO.LAB 09:03
PROVIDERS: PCP Internal Medicine; Visit Provider Internal Medicine
DX: L98.9 Disorder of the skin and subcutaneous tissue, unspecified (principal); M25.50 Pain in unspecified joint; D64.9 Anemia, unspecified; E55.9 Vitamin D deficiency, unspecified; E53.8 Deficiency of other specified B group vitamins; Z23 Encounter for immunization; R30.0 Dysuria
CPT/HCPCS: 36415; 80053; 81003; 82306; 82607; 82746; 83540; 85025; 85597; 85598; 85613; 85652; 85730; 86140; 86146; 86147; 86225; 86704; 86706; 86780; 87340; 87389